=== PATIENT | female | born 1990 | race African-American/Black ===

== ENCOUNTER 2016-08-27 12:16 | Emergency (ER) | payer MEDICAID ==
[~2016-08-27] VITALS: Ht 167.6 cm; Wt 53.5 kg
[~2016-08-27 12:16] MED LIST: DOXYCYCLINE MO100 MG ORAL; DOXYCYCLINE MO100 MG PO; FLAGYL500 MG ORAL; MACRODANTIN100 MG ORAL; METROGEL 1% KI1 EACH TP; METROGEL-VAGINA70 G1 VG; MOTRIN600 MG ORAL; MYCOLOG CREA1 APPLIC TOPIC; NKM
[2016-08-27 12:54] VITALS: BP 125/78
[2016-08-27] MEDS ORDERED: HYDROXYZINE HCL25 M1 PO ×2 (12:59→14:07)
[2016-08-27] MEDS ORDERED: QUETIAPINE FUMA25 MG ORAL (12:59)
--- NOTE | 2016-08-27 13:29 | Emergency Room Report ---
History of Present Illness General Chief Complaint: General Complaint Source: Patient Present Illness HPI 26 y/o female c/o multiple complaints. States that she has rash all over her body that has started 3 days ago. States its itchy and dark colored spots that started on her abdomen and is now extending on her arms and face with lip itching but w/o SOB, throat swelling, or angioedema. States that she also has vaginal discharge that is malodorous and causing vaginal itching. States she is sexually active and is concerned she may have herpes due to perianal mass that formed 4 days ago. States it got worse with wiping and with sitting, assoc with pruritis. No relieving factors and denies any fever, drainage Allergies: Coded Allergies: ACETAMINOPHEN (Verified Allergy, Intermediate, Hives, 09/01/12) HYDROCODONE BIT (Verified Allergy, Intermediate, Hives, 09/01/12) Patient History Past Medical History: see triage record Pertinent Family History: none Last Menstrual Period: 07/2016 Now: No Reviewed Nursing Documentation: PMH: Agreed, PSxH: Agreed Nursing Documentation-PMH Past Medical History: No History, Except For Hx Cardiac Problems: Yes - PE, Irregular HR History Of Psychiatric Problem: Yes - Depression Review of Systems All Other Systems: negative except mentioned in HPI Physical Exam Vital Signs Date Time Temp Pulse Resp B/P Pulse Ox O2 Delivery O2 Flow Rate FiO2 08/27/16 12:54 98.2 104 16 125/78 99 Room Air Sp02 EP Interpretation: reviewed, normal General Appearance: no apparent distress, alert, GCS 15, non-toxic Head: normocephalic, atraumatic Eyes: bilateral eye PERRL, bilateral eye normal inspection ENT: hearing grossly normal, normal pharynx, no angioedema, normal voice Neck: full range of motion, supple/symm/no masses Respiratory: chest non-tender, lungs clear, normal breath sounds, speaking full sentences Cardiovascular #1: regular rate, rhythm, no edema Gastrointestinal: normal bowel sounds, non tender, soft, non-distended, no guarding, no rebound Rectal: mass - perianal mass present with mild tenderness, erythema and fluctulence. , other - Female foster care therapist present Genitourinary: normal inspection, no CVA tenderness Musculoskeletal: back normal, gait/station normal, normal range of motion, non- tender Neurologic: alert, oriented x3, responsive, motor strength/tone normal, sensory intact, speech normal Psychiatric: judgement/insight normal, memory normal, mood/affect normal, no suicidal/homicidal ideation Skin: normal color, warm/dry, well hydrated, rash - scattered hyperpigmented wheeles and flairs present. Lymphatic: no adenopathy Procedures Incision and Drainage Incision and Drainage : Consent: Verbal Site: Perianal Blade Size: 11 I & D Procedure: betadine prep Wound Location: other - gluteal cleft Wound's Depth, Shape: superficial Wound Length (cm): 4 Irrigated w/ Saline (ccs): 250 Anesthesia: 1% Lidocaine, Lidocaine w/ Epi Patient Tolerated: Well Complications: None Medical Decision Making PA Attestation Dr. James my supervising physician with whom patient management has been discussed with. Diagnostic Impression: Primary Impression: Perianal abscess Additional Impressions: Vaginitis Qualified Codes: N76.0 - Acute vaginitis Hives of unknown origin ER Course Pt. presents to the ED c/o multiple complaints Ddx considered but are not limited to STI, BV, Perianal abscess, Candidiasis, Allergic Reaction, Cellulitis, Perianal cyst Vital signs: are WNL, pt. is afebrile H&PE are most consistent with Perianal abscess, Acute Vaginitis, Hives ORDERS: none required at this time, the diagnosis is clinical ED INTERVENTIONS: I&D abscess DISCHARGE: At this time pt. is stable for d/c to home. Will provide printed patient care instructions, and any necessary prescriptions. Care plan and follow up instructions have been discussed with the patient prior to discharge. Laboratory Tests Test 08/27/16 14:20 Urine HCG, Qualitative Negative Last Vital Signs Date Time Temp Pulse Resp B/P Pulse Ox O2 Delivery O2 Flow Rate FiO2 08/27/16 12:54 98.2 104 16 125/78 99 Room Air Status: improved Disposition: HOME, SELF-CARE Condition: Improved Scripts Hydroxyzine Hcl (HYDROXYZINE HCL) 25 Mg Tablet 25 MG PO TID for 10 Days, #30 TAB Prov: SABRY,TAMEEM P.A. 08/27/16 Methylprednisolone* (MEDROL*) 4 Mg Tablet 4 MG ORAL DAILY, #1 PACK 0 Refills Prov: SABRY,TAMEEM P.A. 08/27/16 Fluconazole (FLUCONAZOLE) 100 Mg Tablet 100 MG ORAL DAILY for 1 Day, #2 TAB 0 Refills Prov: MICHAELLE [email or web address].AGracie 08/27/16 Metronidazole* (METROGEL-VAGINAL*) 70 Gm Gel.w.appl 70 GM VG QHS, #1 TUBE Prov: MICHAELLE IBARRA.A. 08/27/16 Doxycycline Hyclate* (VIBRAMYCIN*) 100 Mg Capsule 100 MG ORAL EVERY 12 HOURS for 10 Days, #20 CAP 0 Refills Prov: MICHAELLE [email or web address].[email or web address] 08/27/16 Patient Instructions: Abscess, Bacterial Vaginosis, Hives MICHAELLE IBARRA Aug 27, 2016 13:29
[2016-08-27] MEDS ORDERED: Lidocaine 1% 10mg/ml/Epi 0.005mg/ml 30ml vial INJ ONE (13:30)
[2016-08-27] MEDS ORDERED: VIBRAMYCIN100 MG ORAL (14:03)
[2016-08-27] MEDS ORDERED: METROGEL-VAGINA70 G1 VG (14:04)
[2016-08-27] MEDS ORDERED: FLUCONAZOLE100 MG ORAL (14:04)
[2016-08-27] MEDS ORDERED: MEDROL4 MG ORAL (14:07)
[2016-08-27 15:20] VITALS: BP 128/74
== END 2016-08-27 15:23 | disposition home or self-care (01) ==
LOC: EMR 13:26
DX: K61.0 Anal abscess (principal); N76.0 Acute vaginitis; F32.9 Major depressive disorder, single episode, unspecified; Z88.6 Allergy status to analgesic agent
CPT/HCPCS: 10060; 81025

== ENCOUNTER 2016-09-01 14:28 | Emergency (ER) | payer MEDICAID ==
[~2016-09-01] VITALS: Ht 167.6 cm; Wt 53.5 kg
[~2016-09-01 14:28] MED LIST changes: +FLUCONAZOLE100 MG ORAL; +HYDROXYZINE HCL25 M1 PO; +MEDROL4 MG ORAL; +QUETIAPINE FUMA25 MG ORAL; +VIBRAMYCIN100 MG ORAL
[2016-09-01 14:48] VITALS: BP 118/78
--- NOTE | 2016-09-01 14:55 | Emergency Room Report ---
History of Present Illness General Chief Complaint: Wound Recheck/Suture Removal Source: Patient Present Illness HPI 26-year-old female presents emergency department for wound recheck of previously incised abscess in the gluteal cleft. Patient states she's been taking her antibiotics as directed and denies discharge or worsening of the symptoms at this time. Patient also states she was seen for a rash of the abdomen which has been improving. Patient denies nausea vomiting fevers chills increased erythema, increased tenderness about the incision. Denies abdominal pain, constipation, diarrhea, CP, Palpitations, LOC, AMS, dizziness, Changes in Vision, Sensation, paresthesias, or a sudden severe headache. Allergies: Coded Allergies: ACETAMINOPHEN (Verified Allergy, Intermediate, Hives, 09/01/12) HYDROCODONE BIT (Verified Allergy, Intermediate, Hives, 09/01/12) Patient History Past Medical History: see triage record Past Surgical History: none Pertinent Family History: none Last Menstrual Period: last month Now: No Immunizations: UTD Reviewed Nursing Documentation: PMH: Agreed, PSxH: Agreed Nursing Documentation-PMH Past Medical History: No History, Except For Hx Cardiac Problems: Yes - PE, Irregular HR Review of Systems All Other Systems: negative except mentioned in HPI Physical Exam Vital Signs Date Time Temp Pulse Resp B/P Pulse Ox O2 Delivery O2 Flow Rate FiO2 09/01/16 14:35 97.9 86 18 118/78 98 Room Air Sp02 EP Interpretation: reviewed, normal General Appearance: no apparent distress, alert, GCS 15, non-toxic Head: normocephalic, atraumatic Eyes: bilateral eye PERRL, bilateral eye normal inspection ENT: hearing grossly normal, normal pharynx, no angioedema, normal voice Neck: full range of motion, supple/symm/no masses Respiratory: chest non-tender, lungs clear, normal breath sounds, speaking full sentences Cardiovascular #1: regular rate, rhythm, no edema Gastrointestinal: normal bowel sounds, non tender, soft, no guarding, no rebound, other - resolving rash of the abdomen, no TTP Rectal: deferred Genitourinary: normal inspection, no CVA tenderness Musculoskeletal: back normal, gait/station normal, normal range of motion, non- tender, no calf tenderness Neurologic: alert, oriented x3, responsive, motor strength/tone normal, sensory intact, speech normal Psychiatric: judgement/insight normal, memory normal, mood/affect normal, no suicidal/homicidal ideation Skin: normal color, warm/dry, well hydrated, wd healing/no infection noted - right side of the gluteal cleft/ perirectal area., rash - resolving urticarial type rash of the abdomen and forearms, no induration, old excoriations noted, hyperpigmented plaques noted. Lymphatic: no adenopathy Medical Decision Making PA Attestation Dr. Erickson is my supervising Physician whom patient management has been discussed with. Diagnostic Impression: Primary Impression: Encounter for wound re-check ER Course 26-year-old female presents emergency department for wound recheck of previously incised abscess in the gluteal cleft. Patient states she's been taking her antibiotics as directed and denies discharge or worsening of the symptoms at this time. Patient also states she was seen for a rash which has been improving. Patient denies nausea vomiting fevers chills increased erythema , increased tenderness about the incision. Ddx considered but are not limited to cellulitis, abscess, cystic acne, necrotizing fasciitis, healing wound, resolving urticarial rash. Vital signs: are WNL, pt. is afebrile H&PE are most consistent with healing previously incised abscess. ORDERS: none required at this time, the diagnosis is clinical ED INTERVENTIONS: -none required at this time wound is healing well no signs of infection at this time. d/w pt. to continue taking po abx and to look for signs of infection . DISCHARGE: At this time pt. is stable for d/c to home. Will provide printed patient care instructions, and any necessary prescriptions. Care plan and follow up instructions have been discussed with the patient prior to discharge. Last Vital Signs Date Time Temp Pulse Resp B/P Pulse Ox O2 Delivery O2 Flow Rate FiO2 09/01/16 14:48 18 118/78 98 Room Air 09/01/16 14:35 97.9 86 Disposition: HOME, SELF-CARE Condition: Stable Referrals: NON PHYSICIAN (PCP) Departure Forms: Return to School Return to School On: Sep 02, 2016 School Release Restrictions: None Other School Release Restrictions: PT. was initially seen in ED on 08/27/16 as well. please excuse for 08/26/16. Return to Full Activity: Sep 02, 2016 Patient Instructions: Wound Check Additional Instructions: Take previously medications as directed. Follow up with PCP in 3-5 days Return sooner to ED if new symptoms occur, or current symptoms become worse. - Please note that this Emergency Department Report was dictated using [employer]ret[employer] sales consultant technology software, occasionally this can lead to erroneous entry secondary to interpretation by the dictation equipment. Amy Webb Sep 01, 2016 14:55
[2016-09-01 15:00] VITALS: BP 118/78
== END 2016-09-01 15:24 | disposition home or self-care (01) ==
LOC: EMR 14:49
DX: L02.31 Cutaneous abscess of buttock (principal); Z48.01 Encounter for change or removal of surgical wound dressing; Z86.711 Personal history of pulmonary embolism; Z88.6 Allergy status to analgesic agent
CPT/HCPCS: 99281

== ENCOUNTER 2017-03-20 01:03 | Emergency (ER) | payer MEDICAID ==
[~2017-03-20] VITALS: Ht 167.6 cm; Wt 53.1 kg
--- NOTE | 2017-03-20 01:25 | Emergency Room Report ---
History of Present Illness General Chief Complaint: Vaginal Source: Patient Present Illness HPI 26-year-old female no significant past medical history presenting with 2 weeks of vaginal itching and discharge. Patient states vaginal itching, white cottage cheese discharge, every day for 2 weeks. Patient states that she has been sexually active with only using protection intermittently. Patient states that she wants to be treated for STDs as well. Denies any fever chills vaginal bleeding abdominal pain. Has dysuria, no hematuria no recent abx use Allergies: Coded Allergies: ACETAMINOPHEN (Verified Allergy, Intermediate, Hives, 09/01/12) HYDROCODONE BIT (Verified Allergy, Intermediate, Hives, 09/01/12) Patient History Past Medical History: see triage record Past Surgical History: none Pertinent Family History: none Last Menstrual Period: last month Reviewed Nursing Documentation: PMH: Agreed, PSxH: Agreed Nursing Documentation-PMH Hx Cardiac Problems: Yes - PE, Irregular HR Review of Systems All Other Systems: negative except mentioned in HPI Physical Exam Vital Signs Date Time Temp Pulse Resp B/P (MAP) Pulse Ox O2 Delivery O2 Flow Rate FiO2 03/20/17 01:05 98.1 116 18 135/95 98 Room Air Sp02 EP Interpretation: reviewed, normal General Appearance: normal inspection, well appearing, no apparent distress, alert, GCS 15, non-toxic Head: normocephalic, atraumatic Eyes: bilateral eye normal inspection, bilateral eye PERRL, bilateral eye EOMI ENT: normal ENT inspection, normal pharynx, normal voice, moist mucus membranes Neck: normal inspection, full range of motion, supple Respiratory: normal inspection, lungs clear, normal breath sounds, no respiratory distress, no retraction, no wheezing, speaking full sentences, chest symmetrical Cardiovascular #1: normal inspection, regular rate, rhythm, no edema, normal capillary refill Cardiovascular #2: 2+ radial (R), 2+ radial (L) Gastrointestinal: normal inspection, non tender, soft, non-distended, no guarding Genitourinary: other - cottage cheese vaginal DC, erythematous labia majora Musculoskeletal: normal inspection, back normal, normal range of motion, non- tender Neurologic: normal inspection, alert, oriented x3, responsive, motor strength/ tone normal, sensory intact, normal gait, speech normal Psychiatric: normal inspection, judgement/insight normal, memory normal Skin: normal inspection, normal color, no rash, warm/dry, well hydrated, normal turgor Medical Decision Making Diagnostic Impression: Primary Impression: Yeast infection Additional Impression: Concern about STD in female without diagnosis ER Course 26-year-old female with vaginal itching and discharge for 2 weeks DDX: Yeast Infection/UTI/STDs Plan: UA urine Empirically treated for STDs Fluconazole ER course: Patient has remained stable during ED stay. Received ceftriaxone and azithromycin fluconazole given Last HR 80 Disposition: Patient is to be discharged to home. Patient is instructed to follow up with their primary care doctor within 5 days. Strict return precautions discussed with patient such as fever, chills, worsening/severe pain, nausea, vomiting, which may indicate severe illness. Patient verbalizes understanding and agrees with plan. Please note that this Emergency Department Report was dictated using [employer] logger technology software, occasionally this can lead to erroneous entry secondary to interpretation by the dictation equipment Laboratory Tests Test 03/20/17 01:15 Urine Color Pale yellow Urine Appearance Clear Urine pH 6.5 (4.5-8.0) Urine Specific [place] 1.010 (1.005-1.035) Urine Protein Negative (NEGATIVE) Urine Glucose (UA) Negative (NEGATIVE) Urine Ketones Negative (NEGATIVE) Urine Occult Blood Negative (NEGATIVE) Urine Nitrite Negative (NEGATIVE) Urine Bilirubin Negative (NEGATIVE) Urine Urobilinogen Normal MG/DL (0.0-1.0) Urine Leukocyte Esterase 2+ (NEGATIVE) H Urine RBC 0-2 /HPF (0 - 2) Urine WBC 5-10 /HPF (0 - 2) H Urine Squamous Epithelial Cells Many /LPF (NONE/OCC) H Urine Bacteria Few /HPF (NONE) Urine HCG, Qualitative Negative Chlamydia trachomatis RNA Pending Neisseria gonorrhoeae RNA Pending Last Vital Signs Date Time Temp Pulse Resp B/P (MAP) Pulse Ox O2 Delivery O2 Flow Rate FiO2 03/20/17 01:05 98.1 116 18 135/95 98 Room Air Disposition: HOME, SELF-CARE Condition: Improved Yuli Shea M.D. Mar 20, 2017 01:25
[2017-03-20] MEDS ORDERED: Lidocaine 1% MPF 10mg/ml 5ml ONE (01:28)
[2017-03-20] MEDS ORDERED: Lidocaine 1% MPF 10mg/ml 5ml IM ONE (01:30)
[2017-03-20] MEDS ORDERED: Azithromycin 250mg tab ORAL ONE (01:30)
[2017-03-20 01:38] LABS: APPEARANCE,URINE CLEAR; KETONES,URINE NEGATIVE (NEGATIVE); LEUKOCYTE ESTERASE ,URINE 2+ (NEGATIVE); NITRITE,URINE NEGATIVE (NEGATIVE); PH,URINE 6.5 (4.5-8.0); PROTEIN,URINE NEGATIVE (NEGATIVE); UROBILINOGEN,URINE NORMAL MG/DL (0.0-1.0)
[2017-03-20 01:39] VITALS: BP 135/95
[2017-03-20 01:42] LABS: RBC,URINE 0-2 /HPF (0 - 2)
[2017-03-20 01:43] LABS: BACTERIA,URINE FEW /HPF; SQUAMOUS EPITHELIAL CELL,UR MANY /LPF (NONE/OCC)
[2017-03-20] MEDS ORDERED: Fluconazole 100mg tab ORAL ONE (02:00)
[2017-03-20 02:13] VITALS: BP 135/95
== END 2017-03-20 02:18 | disposition home or self-care (01) ==
LOC: EMR 01:30
DX: B37.3 Candidiasis of vulva and vagina (principal); Z88.6 Allergy status to analgesic agent
CPT/HCPCS: 81003; 81025; 87491; 87590; 96372; 99283; J0696; Q0144

== ENCOUNTER 2018-02-17 13:19 | Emergency (ER) | payer MEDICAID ==
[~2018-02-17] VITALS: Ht 157.5 cm; Wt 59.0 kg
[2018-02-17 14:24] LABS: APPEARANCE,URINE CLEAR; BILIRUBIN, URINE NEGATIVE (NEGATIVE); COLOR,URINE PALE YELLOW; GLUCOSE, URINE (UA) NEGATIVE (NEGATIVE); KETONES,URINE NEGATIVE (NEGATIVE); LEUKOCYTE ESTERASE ,URINE NEGATIVE (NEGATIVE); NITRITE,URINE NEGATIVE (NEGATIVE); PH,URINE 6 (4.5-8.0); PROTEIN,URINE NEGATIVE (NEGATIVE); UROBILINOGEN,URINE 4 MG/DL (0.0-1.0)
[2018-02-17] MEDS ORDERED: Lidocaine 1% MPF 10mg/ml 5ml INJ ONE (15:00)
[2018-02-17] MEDS ORDERED: Azithromycin 250mg tab ORAL ONE (15:00)
--- NOTE | 2018-02-17 15:02 | Emergency Room Report ---
History of Present Illness General Chief Complaint: Vaginal Source: Patient Present Illness HPI 27 YO female presents to the ED c/o malodorus vaginal d/c x 3 days. pt. reports promiscuity with multiple partners and without protection. denies fevers, chills , abdominal pain, joint pain or swollen tender lymph nodes. Denies skin lesions/ rashes. Denies , and denies taking -control. Allergies: Coded Allergies: ACETAMINOPHEN (Verified Allergy, Intermediate, Hives, 09/01/12) HYDROCODONE BIT (Verified Allergy, Intermediate, Hives, 09/01/12) Patient History Past Medical History: see triage record Past Surgical History: none Pertinent Family History: none Social History: Reports: alcohol use - daily ETOH Last Menstrual Period: 02/10/2018 Reviewed Nursing Documentation: PMH: Agreed; PSxH: Agreed Nursing Documentation-PMH Past Medical History: No History, Except For Hx Cardiac Problems: Yes - PE, Irregular HR History Of Psychiatric Problem: Yes - depression, mood disorder Review of Systems All Other Systems: negative except mentioned in HPI Physical Exam Vital Signs Date Time Temp Pulse Resp B/P (MAP) Pulse Ox O2 Delivery O2 Flow Rate FiO2 02/17/18 13:35 98.2 108 18 96 Room Air 98.2 Sp02 EP Interpretation: reviewed, normal General Appearance: no apparent distress, alert, GCS 15, non-toxic Head: normocephalic, atraumatic Eyes: bilateral eye normal inspection, bilateral eye PERRL ENT: hearing grossly normal, normal voice Neck: full range of motion Respiratory: lungs clear, normal breath sounds, speaking full sentences Cardiovascular #1: regular rate, rhythm Gastrointestinal: normal bowel sounds, non tender, soft Rectal: deferred Genitourinary: normal inspection, no CVA tenderness, adnexa normal, ext genitalia/vag normal, other - thin whity malodorus vaginal d/c noted Musculoskeletal: back normal, gait/station normal, normal range of motion, non- tender Neurologic: alert, oriented x3, responsive, motor strength/tone normal, sensory intact, speech normal, grossly normal Psychiatric: judgement/insight normal Skin: normal color, no rash, warm/dry, well hydrated Lymphatic: no adenopathy Medical Decision Making PA Attestation Dr. Bobo is my supervising Physician whom patient management has been discussed with. Diagnostic Impression: Primary Impression: Bacterial vaginosis Additional Impression: Vaginal discharge ER Course 27 YO female presents to the ED c/o malodorus vaginal d/c x 3 days. pt. reports promiscuity with multiple partners and without protection. denies fevers, chills , abdominal pain, joint pain or swollen tender lymph nodes. Denies skin lesions/ rashes. Denies , and denies taking -control. Ddx considered but are not limited to UTi , Pyelo, STI, Stone, Cystitis, vaginal laceration, vaginitis. Vital signs: are WNL, pt. is afebrile H& PE are most consistent with: Vaginitis ORDERS: - UA labs are attached : unremarkable - [place] : Clue cells, no yeast, or trich, bacteria noted ED INTERVENTIONS: -Rocephin IM -Azithromycin 1g PO -D/w pt. that due to daily ETOH intake she is not a good candidate for PO Flagyl will rx with metrogel. DISCHARGE: At this time pt. is stable for d/c to home. Will provide printed patient care instructions, and any necessary prescriptions. Care plan and follow up instructions have been discussed with the patient prior to discharge. discussed with the patient prior to discharge. Labs Test 02/17/18 13:50 Urine Color Pale yellow Urine Appearance Clear Urine pH 6 (4.5-8.0) Urine Specific [place] 1.015 (1.005-1.035) Urine Protein Negative (NEGATIVE) Urine Glucose (UA) Negative (NEGATIVE) Urine Ketones Negative (NEGATIVE) Urine Blood Negative (NEGATIVE) Urine Nitrite Negative (NEGATIVE) Urine Bilirubin Negative (NEGATIVE) Urine Urobilinogen 4 MG/DL (0.0-1.0) Urine Leukocyte Esterase Negative (NEGATIVE) Urine HCG, Qualitative Negative (NEGATIVE) Last Vital Signs Date Time Temp Pulse Resp B/P (MAP) Pulse Ox O2 Delivery O2 Flow Rate FiO2 02/17/18 14:05 98.2 18 96 Room Air 98.2 02/17/18 13:35 108 Disposition: HOME, SELF-CARE Condition: Stable Scripts Metronidazole* (METROGEL-VAGINAL*) 70 Gm Gel.w.appl 1 APPL VAGIN EVERY 12 HOURS for 5 Days, #70 GM Prov: Amy Webb 02/17/18 Patient Instructions: Bacterial Vaginosis Additional Instructions: Take medications as directed. MAKE SURE YOUR PARTNERS GET TREATED WITH ANTIBIOTICS to prevent becoming re- infected No intercourse for 7-10 days, as you are infectious and can spread the bacterial infection. Follow up with PCP in 3-5 days Return sooner to ED if new symptoms occur, or current symptoms become Amy Webb Feb 17, 2018 15:02
[2018-02-17 15:03] VITALS: BP 132/62
[2018-02-17] MEDS ORDERED: METROGEL-VAGINA70 G1 VAGIN (15:08)
== END 2018-02-17 15:00 | disposition home or self-care (01) ==
LOC: EMR 14:12
DX: N76.0 Acute vaginitis (principal); Z88.5 Allergy status to narcotic agent; Z88.6 Allergy status to analgesic agent
CPT/HCPCS: 81003; 81025; 87210; 96372; 99283; J0696; Q0144; 96374

== ENCOUNTER 2018-05-06 13:19 | Emergency (ER) | payer MEDICAID ==
[~2018-05-06] VITALS: Ht 167.6 cm; Wt 54.4 kg
[~2018-05-06 13:19] MED LIST changes: +METROGEL-VAGINA70 G1 VAGIN
[2018-05-06] MEDS ORDERED: BACITRACIN-POL3.5 GM OP (14:05)
--- NOTE | 2018-05-06 14:09 | Emergency Room Report ---
History of Present Illness General Chief Complaint: Skin Rash/Abscess Source: Patient Present Illness HPI Patient just with several complaints Initially complaining that her ointment for her right eye had been left open and she ran out patient was given ointment for her eye irritation several days ago at another hospital patient also complaining of an area on the right buttock area where she felt a small raised region Otherwise denies any chest pain or shortness of breath denies any vomiting or diarrhea denies any fevers or chills patient also felt that there was some different discoloration to her lips Allergies: Coded Allergies: ACETAMINOPHEN (Verified Allergy, Intermediate, Hives, 09/01/12) HYDROCODONE BIT (Verified Allergy, Intermediate, Hives, 09/01/12) Patient History Past Medical History: see triage record Pertinent Family History: none Last Menstrual Period: 04/28/18 Now: No Reviewed Nursing Documentation: PMH: Agreed; PSxH: Agreed Nursing Documentation-PMH Past Medical History: No History, Except For Hx Cardiac Problems: Yes - PE, Irregular HR Review of Systems All Other Systems: negative except mentioned in HPI Physical Exam Vital Signs Date Time Temp Pulse Resp B/P (MAP) Pulse Ox O2 Delivery O2 Flow Rate FiO2 05/06/18 13:46 98.2 76 18 115/80 97 Room Air Sp02 EP Interpretation: reviewed, normal General Appearance: well appearing, no apparent distress Head: normocephalic, atraumatic Eyes: right eye other - Right conjunctiva had some mild Erythematous hue, no obvious foreign body; bilateral eye PERRL, bilateral eye EOMI ENT: other - Mild dryness to both upper and lower lips, no evidence of blister formation or other STD Neck: supple Respiratory: lungs clear, normal breath sounds Cardiovascular #1: regular rate, rhythm Gastrointestinal: non tender, soft Musculoskeletal: normal inspection Neurologic: alert, oriented x3, responsive Skin: other - Small area on the right buttock area appears to be consistent with likely insect bite nonfluctuant no dermatomal fashion, Lymphatic: no adenopathy Medical Decision Making Diagnostic Impression: Primary Impression: Rash and other nonspecific skin eruption Additional Impression: conjunctivitis ER Course Patient presents with several different complaints findings consistent with previous conjunctivitis and the skin dermatitis appears to be likely insect bite related patient does not appear otherwise septic or toxic and is stable for close outpatient follow-up Last Vital Signs Date Time Temp Pulse Resp B/P (MAP) Pulse Ox O2 Delivery O2 Flow Rate FiO2 05/06/18 13:46 98.2 76 18 115/80 97 Room Air Status: unchanged Disposition: HOME, SELF-CARE Condition: Stable Scripts Bacitracin/Polymyxin B Sulfate (BACITRACIN-POLYMYXIN EYE OINT) 3.5 Gm Oint...g. 1 INCH OP BID for 10 Days, GM Prov: Eloy Clifford DO 05/06/18 Referrals: [facility] - Peds ER - Patient Instructions: Bacterial Conjunctivitis, [id number], Insect Bite, Easy -to-Read Additional Instructions: Patient is provided with the discharge instructions notified to follow up with primary doctor in the next 2-3 days otherwise return to the er with any worsening symptoms. Please note that this report is being documented using [employer] technology. This can lead to erroneous entry secondary to incorrect interpretation by the dictating instrument. Eloy Clifford DO May 06, 2018 14:09
[2018-05-06 16:24] VITALS: BP 115/80
[2018-05-06 16:26] VITALS: BP 115/80
== END 2018-05-06 14:30 | disposition home or self-care (01) ==
LOC: EMR 14:00
DX: R21 Rash and other nonspecific skin eruption (principal); H10.9 Unspecified conjunctivitis; Z88.6 Allergy status to analgesic agent
CPT/HCPCS: 99282

== ENCOUNTER 2018-06-29 02:14 | Emergency (ER) | payer MEDICAID ==
[~2018-06-29] VITALS: Ht 160 cm; Wt 65.8 kg
[~2018-06-29 02:14] MED LIST changes: +BACITRACIN-POL3.5 GM OP
--- NOTE | 2018-06-29 02:29 | NUR ---
ED Nurse Note: Pt is not in waiting room.
[2018-06-29 02:47] VITALS: BP 116/72
--- NOTE | 2018-06-29 02:47 | NUR ---
ED Nurse Note: Pt arrived ED from home. C/o " something in her both eye today" . Pt is A/O X4, ambulated with steady gait. Vital signs stable at this time. waitng for orders.
--- NOTE | 2018-06-29 04:15 | Emergency Room Report ---
History of Present Illness General Chief Complaint: General Complaint Source: Patient Present Illness HPI Patient presents with complaints of eye irritation Reports redness over the past several days some discharge Denies any pain Denies any visual changes denies any headache denies any neck pain or photophobia Patient had similar presentation recently Otherwise denies any trauma Allergies: Coded Allergies: ACETAMINOPHEN (Verified Allergy, Intermediate, Hives, 09/01/12) HYDROCODONE BIT (Verified Allergy, Intermediate, Hives, 09/01/12) Patient History Past Medical History: see triage record Pertinent Family History: none Reviewed Nursing Documentation: PMH: Agreed; PSxH: Agreed Nursing Documentation-PMH Past Medical History: No Stated History Hx Cardiac Problems: Yes - PE, Irregular HR Review of Systems All Other Systems: negative except mentioned in HPI Physical Exam Vital Signs Date Time Temp Pulse Resp B/P (MAP) Pulse Ox O2 Delivery O2 Flow Rate FiO2 06/29/18 02:41 98.1 88 20 114/74 100 Room Air Sp02 EP Interpretation: reviewed, normal General Appearance: well appearing, no apparent distress Head: normocephalic, atraumatic Eyes: bilateral eye PERRL, bilateral eye other - Bilateral conjunctivitis ENT: normal pharynx Neck: supple Respiratory: lungs clear Musculoskeletal: normal inspection Neurologic: alert, oriented x3, responsive Skin: no rash Lymphatic: no adenopathy Medical Decision Making Diagnostic Impression: Primary Impression: Conjunctivitis ER Course Patient's presentation and exam is consistent with conjunctivitis there is likely mostly viral pathology however the patient is fairly Persistent regarding obtaining prescription Given similar discharge patient was provided with this prescription And requires close outpatient follow-up Last Vital Signs Date Time Temp Pulse Resp B/P (MAP) Pulse Ox O2 Delivery O2 Flow Rate FiO2 06/29/18 03:25 98.1 88 20 114/74 100 Room Air Status: unchanged Disposition: HOME, SELF-CARE Condition: Stable Referrals: NOT CHOSEN IPA/MD,REFERRING (PCP) Additional Instructions: Patient is provided with the discharge instructions notified to follow up with primary doctor in the next 2-3 days otherwise return to the er with any worsening symptoms. Please note that this report is being documented using [employer] technology. This can lead to erroneous entry secondary to incorrect interpretation by the dictating instrument. Eloy Clifford DO Jun 29, 2018 04:15
[2018-06-29] MEDS ORDERED: GENTAMICIN SUL3.5 GM OP (04:16)
[2018-06-29 04:22] VITALS: BP 114/74
--- NOTE | 2018-06-29 04:22 | NUR ---
ED Nurse Note: Pt has seen by Dr. Clifford. orders carried out. Pt is ready for discharge. D/c instruction given to Pt and verbalized understanding. ID band removed. Pt d/c from ED with steady gait.
== END 2018-06-29 04:22 | disposition home or self-care (01) ==
LOC: EMR 02:26
DX: H10.9 Unspecified conjunctivitis (principal); Z88.6 Allergy status to analgesic agent
CPT/HCPCS: 99282

== ENCOUNTER 2018-06-30 02:15 | Emergency (ER) | payer MEDICAID ==
[~2018-06-30] VITALS: Ht 167.6 cm; Wt 57.6 kg
[~2018-06-30 02:15] MED LIST changes: +GENTAMICIN SUL3.5 GM OP
--- NOTE | 2018-06-30 02:19 | NUR ---
ED Nurse Note: PT was called for triag, pt not found in waiting room.
--- NOTE | 2018-06-30 02:23 | NUR ---
ED Nurse Note: PT was called for triag, pt not found in waiting room.
--- NOTE | 2018-06-30 02:31 | NUR ---
ED Nurse Note: PT was called for triag, pt not found in waiting room.
--- NOTE | 2018-06-30 02:36 | NUR ---
ED Nurse Note: PT was called for triag, pt not found in waiting room.
--- NOTE | 2018-06-30 02:50 | NUR ---
ED Nurse Note: recieved pt on gurney, awake, alert and oriented x 4, pt ambulated to bed with pants down, pt refuses to answer nurse questions stating she wants to speak with the md, tp was here for same complaint yesterday and left ama by security, will attempt to assess when md arives to room, tp also refuses to gown or give urine sample at this time.
[2018-06-30 03:00] VITALS: BP 119/73
--- NOTE | 2018-06-30 03:05 | NUR ---
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
--- NOTE | 2018-06-30 03:08 | Emergency Room Report ---
History of Present Illness General Chief Complaint: Female Urogenital Problems Source: Patient Present Illness HPI Patient is a 28-year-old female presented after increased vaginal bleeding several days ago. Patient denies any current vaginal bleeding. History is markedly limited by patient's poor cooperation. Allergies: Coded Allergies: ACETAMINOPHEN (Verified Allergy, Intermediate, Hives, 09/01/12) HYDROCODONE BIT (Verified Allergy, Intermediate, Hives, 09/01/12) Patient History Past Medical History: see triage record Last Menstrual Period: pt states she is on it right now. Now: No Reviewed Nursing Documentation: PMH: Agreed; PSxH: Agreed Nursing Documentation-PMH Hx Cardiac Problems: Yes - PE, Irregular HR Review of Systems All Other Systems: limited - Poor historian Physical Exam Vital Signs Date Time Temp Pulse Resp B/P (MAP) Pulse Ox O2 Delivery O2 Flow Rate FiO2 06/30/18 02:39 97.9 77 14 119/73 99 Room Air General Appearance: normal inspection, alert, GCS 15, non-toxic Head: normocephalic ENT: hearing grossly normal Neck: normal inspection, full range of motion Respiratory: normal inspection Gastrointestinal: normal inspection Musculoskeletal: normal inspection Neurologic: normal inspection, alert, responsive Psychiatric: other - belligerent Medical Decision Making Diagnostic Impression: Primary Impression: Vaginal bleeding ER Course Patient is a 28-year-old female presented for vaginal bleeding. Differential diagnosis include was not limited to ectopic , menorrhagia, coagulopathy among others. Patient was noted to be markedly belligerent and abusive. She stated that she did not want to be seen by someone of my color. She would seek a "white doctor" somewhere else. Appears to be hemodynamically stable and in no respiratory distress.Patient was advised to return if she changed her mind. Last Vital Signs Date Time Temp Pulse Resp B/P (MAP) Pulse Ox O2 Delivery O2 Flow Rate FiO2 06/30/18 02:39 97.9 77 14 119/73 99 Room Air Status: unchanged Disposition: ELOPED Condition: Unknown Referrals: NOT CHOSEN IPA/,REFERRING (PCP) Carlos A Erickson MD Jun 30, 2018 03:08
[2018-06-30 03:15] VITALS: BP 119/73
[2018-07-10] MEDS ORDERED: NKM (23:16)
[2018-07-11] MEDS ORDERED: BENADRYL25 M3 PO (00:11)
== END 2018-06-30 03:10 | disposition left against medical advice (07) ==
LOC: EMR 03:06
DX: N93.9 Abnormal uterine and vaginal bleeding, unspecified (principal); Z88.6 Allergy status to analgesic agent
CPT/HCPCS: 99282

== ENCOUNTER 2018-07-13 00:08 | Emergency (ER) | payer MEDICAID ==
[~2018-07-13] VITALS: Ht 167.6 cm; Wt 53.5 kg
[~2018-07-13 00:08] MED LIST changes: +BENADRYL25 M3 PO
--- NOTE | 2018-07-13 00:20 | NUR ---
ED Nurse Note: pt walked in c/o skin irritation, pt stated she have contact with irritant and might have acquired ringworm but unbale to tell which part of the body
[2018-07-13 00:24] VITALS: BP 99/65
--- NOTE | 2018-07-13 00:29 | Emergency Room Report ---
History of Present Illness General Chief Complaint: Skin Rash/Abscess Source: Patient, Medical Record Present Illness HPI This is a 28-year-old female with no past medical history. She presents with chief complaint of skin irritation to her feet. Onset for last 2 weeks. She was here couple days ago and said that she lost her prescription. Denies any nausea vomiting. Said that she was exposed to some irritation. Denies any other complaint. Pain is itchy. Localized to the toes area. Denies any alcohol or Drugs. Allergies: Coded Allergies: ACETAMINOPHEN (Verified Allergy, Intermediate, Hives, 09/01/12) HYDROCODONE BIT (Verified Allergy, Intermediate, Hives, 09/01/12) Patient History Past Medical History: see triage record, old chart reviewed Past Surgical History: none Pertinent Family History: none Social History: Denies: smoking Last Menstrual Period: jun 28 Now: No Immunizations: other Reviewed Nursing Documentation: PMH: Agreed; PSxH: Agreed Nursing Documentation-PMH Hx Cardiac Problems: Yes - PE, Irregular HR Review of Systems Eye: Denies: eye pain, blurred vision ENT: Denies: ear pain, nose congestion, throat swelling Respiratory: Denies: cough, shortness of breath Cardiovascular: Denies: chest pain, palpitations Gastrointestinal: Denies: abdominal pain, diarrhea, nausea, vomiting Musculoskeletal: Denies: back pain, joint pain Skin: Reports: rash Neurological: Denies: headache, numbness Endocrine: Denies: increased thirst, increased urine Hematologic/Lymphatic: Denies: easy bruising All Other Systems: negative except mentioned in HPI Physical Exam Vital Signs Date Time Temp Pulse Resp B/P (MAP) Pulse Ox O2 Delivery O2 Flow Rate FiO2 07/13/18 00:12 97.9 94 16 99/65 97 Room Air vitals normal Sp02 EP Interpretation: reviewed, normal General Appearance: well appearing, no apparent distress, alert Head: normocephalic, atraumatic Eyes: bilateral eye PERRL, bilateral eye EOMI ENT: hearing grossly normal, normal pharynx Neck: full range of motion, supple, no meningismus Respiratory: chest non-tender, lungs clear, normal breath sounds Cardiovascular #1: regular rate, rhythm, no murmur Gastrointestinal: normal bowel sounds, non tender, no mass, no organomegaly, no bruit, non-distended Musculoskeletal: back normal, gait/station normal, normal range of motion, other - Patient has some skin breakdown excoriation to the volar aspect of her toes and feet. This is secondary to moisture. Neurologic: alert, oriented x3 Psychiatric: mood/affect normal Skin: warm/dry Medical Decision Making Diagnostic Impression: Primary Impression: Skin abrasion ER Course Patient with skin irritation and breakdown from poor hygiene and moisture. No evidence of any infection. I was given a right for Bactroban but patient left before getting prescription. Last Vital Signs Date Time Temp Pulse Resp B/P (MAP) Pulse Ox O2 Delivery O2 Flow Rate FiO2 07/13/18 00:12 97.9 94 16 99/65 97 Room Air Status: unchanged Disposition: HOME, SELF-CARE Condition: Stable Esteban Valdez MD Jul 13, 2018 00:29
[2018-07-13 00:31] VITALS: BP 99/65
--- NOTE | 2018-07-13 00:32 | NUR ---
ED Nurse Note: Pt is DC per ERMD orders. pt is alert and oriented times 4 and understands all DC notes and instructions. pt is instructed to follow up with main provider as soon as possible. pt is instructed to return to ER if any variance in condition. pt left with all belongings. pt vital signs, condition and status is reported to ERMD prior to DC. pt is stable for DC. pt vital signs is stable. pt is able to ambulate. pt ID band removed. pt has left without DC notes.
== END 2018-07-13 00:30 | disposition home or self-care (01) ==
LOC: EMR 00:23
DX: S90.416A Abrasion, unspecified lesser toe(s), initial encounter (principal); X58.XXXA Exposure to other specified factors, initial encounter; Y92.89 Other specified places as the place of occurrence of the external cause; Z88.5 Allergy status to narcotic agent; Z88.6 Allergy status to analgesic agent; F17.200 Nicotine dependence, unspecified, uncomplicated; Z86.711 Personal history of pulmonary embolism
CPT/HCPCS: 99282

== ENCOUNTER 2018-07-20 16:23 | Emergency (ER) | payer MEDICAID ==
[~2018-07-20] VITALS: Ht 165.1 cm; Wt 56.7 kg
--- NOTE | 2018-07-20 17:21 | Emergency Room Report ---
History of Present Illness General Chief Complaint: Medication Refill Source: Patient Present Illness HPI 28-year-old female presents to the emergency department requesting medication refill for medications that have been previously prescribed for her dermatitis on the left side of her forehead. Patient reports return of her symptoms she denies changes in characteristics. Patient she does not recall what the name of the medication was. Pt. denies fevers, chills or swollen tender lymph nodes. Denies lesions/rashes elsewhere on the body. Denies new medications or body washes or creams. Denies swelling of the lips, tongue , throat or airway. Denies wheezing, or shortness of breath. Denies recent travel, recent illness or ill contacts. denies blisters, oral lesions, or sloughing of the skin Allergies: Coded Allergies: ACETAMINOPHEN (Verified Allergy, Intermediate, Hives, 09/01/12) HYDROCODONE BIT (Verified Allergy, Intermediate, Hives, 09/01/12) Patient History Past Medical History: see triage record Past Surgical History: none Pertinent Family History: none Now: No Reviewed Nursing Documentation: PMH: Agreed; PSxH: Agreed Nursing Documentation-PMH Hx Cardiac Problems: Yes - PE, Irregular HR Review of Systems All Other Systems: negative except mentioned in HPI Physical Exam Vital Signs Date Time Temp Pulse Resp B/P (MAP) Pulse Ox O2 Delivery O2 Flow Rate FiO2 07/20/18 17:09 98.8 100 18 97 Room Air Sp02 EP Interpretation: reviewed, normal General Appearance: no apparent distress, alert, GCS 15, non-toxic Head: normocephalic, atraumatic, other - hyperpigmented dry patch on the left side of the forehead, no blisters, vessicles, erythema or warmth. Eyes: bilateral eye normal inspection, bilateral eye PERRL ENT: hearing grossly normal, normal voice Neck: full range of motion, other - no stridor Respiratory: lungs clear, normal breath sounds, no wheezing, speaking full sentences Cardiovascular #1: regular rate, rhythm Musculoskeletal: back normal, gait/station normal, normal range of motion, non- tender Neurologic: alert, oriented x3, responsive, motor strength/tone normal, sensory intact, speech normal, grossly normal Psychiatric: judgement/insight normal, other - Pt. is somewhat irritated and short with words/ answers. Skin: normal color, warm/dry, well hydrated, rash - hyperpigmented dry patch on the left side of the forehead, no blisters, vessicles, erythema or warmth. Medical Decision Making PA Attestation Dr. Hopper is my supervising Physician whom patient management has been discussed with. Diagnostic Impression: Primary Impression: Encounter for medication refill Additional Impression: Rash and other nonspecific skin eruption ER Course 28-year-old female presents to the emergency department requesting medication refill for medications that have been previously prescribed for her dermatitis on the left side of her forehead. Patient reports return of her symptoms she denies changes in characteristics. Patient she does not recall what the name of the medication was. Pt. denies fevers, chills or swollen tender lymph nodes. Denies lesions/rashes elsewhere on the body. Denies new medications or body washes or creams. Denies swelling of the lips, tongue , throat or airway. Denies wheezing, or shortness of breath. Denies recent travel, recent illness or ill contacts. denies blisters, oral lesions, or sloughing of the skin Ddx considered but are not limited to cellulitis, scabies, shingles, varicella, dermatitis, urticaria, eczema, tinea, viral exanthem, SJS Vital signs: are WNL, pt. is afebrile H&PE are most consistent with superficial dermatitis of the left side of the forehead, no evidence of acute impending airway compromise or anaphylaxis. ORDERS: none required at this time, the diagnosis is clinical ED INTERVENTIONS: None required at this time. DISCHARGE: At this time pt. is stable for d/c to home. Will provide printed patient care instructions, and any necessary prescriptions. Care plan and follow up instructions have been discussed with the patient prior to discharge. Last Vital Signs Date Time Temp Pulse Resp B/P (MAP) Pulse Ox O2 Delivery O2 Flow Rate FiO2 07/20/18 17:09 98.8 100 18 97 Room Air Disposition: HOME, SELF-CARE Condition: Stable Scripts Diphenhydramine Hcl (BENADRYL ALLERGY) 25 Mg Tablet 25 MG PO Q6HR, #20 TAB Prov: Amy Webb 07/20/18 Bacitracin/Polymyxin B Sulfate (BACITRACIN-POLYMYXIN OINTMENT) 28.35 Gm Oint...g. 1 APPLIC TP BID, #28.3 GM Prov: Amy Webb 07/20/18 Hydrocortisone (Hydrocortisone Cream 2.5%) Y Cream.appl 1 APPLIC TP BID, #28.3 GM Prov: Amy Webb 07/20/18 Patient Instructions: Medicine Refill at the Emergency Department Additional Instructions: Take medications as directed. Follow up with a Primary Care Provider in 3-5 days for DERMATOLOGY REFERRAL , even if your symptoms have resolved. --Please review list of primary care clinics, if you do not already have a primary care provider Return sooner to ED if new symptoms occur, or current symptoms become worse. - Please note that this Emergency Department Report was dictated using [employer] technology software, occasionally this can lead to erroneous entry secondary to interpretation by the dictation equipment. Amy Webb Jul 20, 2018 17:21
[2018-07-20] MEDS ORDERED: BACITRACIN-P28.35 GM TP (17:22)
[2018-07-20] MEDS ORDERED: HYDROCORTISONE30 G2 TP (17:22)
--- NOTE | 2018-07-20 17:45 | NUR ---
ED Nurse Note: Patient refused to remove head cover and scarf around the neck. Patient is here for rash. Reports no other symptoms. Patient does not scratch or no facial grimacing or guarding noted.
[2018-07-20] MEDS ORDERED: BENADRYL ALLERG25 M1 PO (17:47)
--- NOTE | 2018-07-20 18:00 | NUR ---
ED Nurse Note: Patient is being discharged from medical care. Patient awake, alert, oriented x 3. Regular unlabored breathing noted. D/C instruction and prescriptions given. Ambulated out with steady gait with all her belongings.
== END 2018-07-20 18:00 | disposition home or self-care (01) ==
LOC: EMR 17:50
DX: Z76.0 Encounter for issue of repeat prescription (principal); R21 Rash and other nonspecific skin eruption; Z88.6 Allergy status to analgesic agent; Z88.5 Allergy status to narcotic agent; Z86.711 Personal history of pulmonary embolism
CPT/HCPCS: 99282

== ENCOUNTER 2018-10-30 13:08 | Emergency (ER) | payer MEDICAID ==
[~2018-10-30] VITALS: Ht 167.6 cm; Wt 54.9 kg
[~2018-10-30 13:08] MED LIST changes: +BACITRACIN-P28.35 GM TP; +BENADRYL ALLERG25 M1 PO; +HYDROCORTISONE30 G2 TP
--- NOTE | 2018-10-30 13:14 | NUR ---
ED Nurse Note: patient not in the waiting room.
[2018-10-30 13:36] VITALS: BP 120/85
--- NOTE | 2018-10-30 13:42 | NUR ---
ED Nurse Note: pt walked in c.o constipation abd pain rectal irritation . pt states she has been having small bowl movements but in clumps. awaiting er md millard.
--- NOTE | 2018-10-30 14:15 | Emergency Room Report ---
History of Present Illness General Chief Complaint: Constipation Source: Patient Present Illness HPI 28 Yo Female presents to the ED c/o Constipation x 10 days. last BM was 3 days ago. Stool was described as very hard with 10/10 in severity rectal pain upon defecation. pt. reports hx of hemorrhoids. She states her symptoms were exacerbated due to poor diet while incarcerated. pt. denies N/V/F/C. She denies diarrhea, recent travel or ill contacts. She denies . She reports 2 days of vaginal itching on the external labia. She denies sores, vaginal d/c or swollen tender lymph nodes. pt. denies pelvic pain or abdominal pain. Pt. reports some dysuria. She denies low back pain. Pt. reports some scant brbpr on the tissue after wiping after her last BM. Allergies: Coded Allergies: ACETAMINOPHEN (Verified Allergy, Intermediate, Hives, 09/01/12) HYDROCODONE BIT (Verified Allergy, Intermediate, Hives, 09/01/12) Patient History Past Medical History: see triage record Past Surgical History: none Pertinent Family History: none Now: No Reviewed Nursing Documentation: PMH: Agreed; PSxH: Agreed Nursing Documentation-PMH Past Medical History: No History, Except For Review of Systems All Other Systems: negative except mentioned in HPI Physical Exam Vital Signs Date Time Temp Pulse Resp B/P (MAP) Pulse Ox O2 Delivery O2 Flow Rate FiO2 10/30/18 13:13 98.2 96 17 96 Room Air 10/30/18 13:36 120/85 Sp02 EP Interpretation: reviewed, normal General Appearance: no apparent distress, alert, GCS 15, non-toxic Head: normocephalic, atraumatic Eyes: bilateral eye normal inspection, bilateral eye PERRL ENT: hearing grossly normal, normal voice Neck: full range of motion Respiratory: lungs clear, normal breath sounds, speaking full sentences Cardiovascular #1: regular rate, rhythm Gastrointestinal: normal bowel sounds, non tender, soft, non-distended, no guarding Rectal: deferred - by pt. Genitourinary: normal inspection, no CVA tenderness Musculoskeletal: back normal, gait/station normal, normal range of motion, non- tender Neurologic: alert, oriented x3, responsive, motor strength/tone normal, sensory intact, speech normal, grossly normal Psychiatric: judgement/insight normal Skin: normal color, no rash, warm/dry, well hydrated Medical Decision Making PA Attestation Dr. hall is my supervising Physician whom patient management has been discussed with. Diagnostic Impression: Primary Impression: Constipation Qualified Codes: K59.00 - Constipation, unspecified Additional Impressions: Bleeding hemorrhoid Vaginitis and vulvovaginitis ER Course 28 Yo Female presents to the ED c/o Constipation x 10 days. last BM was 3 days ago. Stool was described as very hard with 10/10 in severity rectal pain upon defecation. pt. reports hx of hemorrhoids. She states her symptoms were exacerbated due to poor diet while incarcerated. pt. denies N/V/F/C. She denies diarrhea, recent travel or ill contacts. She denies . She reports 2 days of vaginal itching on the external labia. She denies sores, vaginal d/c or swollen tender lymph nodes. pt. denies pelvic pain or abdominal pain. Pt. reports some dysuria. She denies low back pain. Pt. reports some scant brbpr on the tissue after wiping after her last BM. Ddx considered but are not limited to constipation , appendicitis, SBO, ectopic , PID, tubo-ovarian abscess, Hemorrhoid, UTI, Vaginitis just to name a few. Vital signs: are WNL, pt. is afebrile H&PE are most consistent with constipation. bowl sounds are normo active. ORDERS: -UA- few bacteria -Urine Hcg: Negative ED INTERVENTIONS: G cocktail, pt. states pain has subsided after administration of GI cocktail. DISCHARGE: At this time pt. is stable for d/c to home. Will provide printed patient care instructions, and any necessary prescriptions. Care plan and follow up instructions have been discussed with the patient prior to discharge. Labs Test 10/30/18 14:30 Urine Color Yellow Urine Appearance Clear Urine pH 6.5 (4.5-8.0) Urine Specific [place] 1.010 (1.005-1.035) Urine Protein Negative (NEGATIVE) Urine Glucose (UA) Negative (NEGATIVE) Urine Ketones Negative (NEGATIVE) Urine Blood Negative (NEGATIVE) Urine Nitrite Negative (NEGATIVE) Urine Bilirubin Negative (NEGATIVE) Urine Urobilinogen Normal MG/DL (0.0-1.0) Urine Leukocyte Esterase 1+ (NEGATIVE) Urine RBC 0 /HPF (0 - 2) Urine WBC 0-2 /HPF (0 - 2) Urine Squamous Epithelial Cells Few /LPF (NONE/OCC) Urine Bacteria Occasional /HPF (NONE) Urine HCG, Qualitative Negative (NEGATIVE) Last Vital Signs Date Time Temp Pulse Resp B/P (MAP) Pulse Ox O2 Delivery O2 Flow Rate FiO2 10/30/18 13:36 98.2 17 120/85 96 Room Air 10/30/18 13:13 96 Status: improved Disposition: HOME, SELF-CARE Condition: Stable Scripts Fluconazole (FLUCONAZOLE) 100 Mg Tablet 100 MG ORAL DAILY, #2 TAB 0 Refills Prov: Amy Webb 10/30/18 Lidocaine/Hydrocortisone AC (Lidocaine-Hc 2-2% Cream Kit) 1 Each Kit 1 EACH RC BID for 3 Days, #6 KIT Prov: Amy Webb 10/30/18 Na Phos,M-B/Na Phos,Di-Ba (ENEMA IVCQX-BG-VSA) 133 Ml Enema 133 ML RC TID for constipation, #4 EA Prov: Amy Webb 10/30/18 Docusate Sodium* (COLACE*) 100 Mg Capsule 100 MG ORAL THREE TIMES A DAY, #60 CAP Prov: Amy Webb 10/30/18 Lactulose (LACTULOSE*) 20 Gm/30 Ml Solution 30 ML ORAL BID for 3 Days, #180 ML 0 Refills Prov: Amy Webb 10/30/18 Nitrofurantoin Monohyd/M-Cryst* (MACROBID 100 MG*) 100 Mg Capsule 100 MG ORAL EVERY 12 HOURS for 5 Days, #10 CAP Prov: Amy Webb 10/30/18 Patient Instructions: Constipation, Adult Additional Instructions: Take medications as directed. Follow up with a Primary Care Provider in 3-5 days, even if your symptoms have resolved. --Please review list of primary care clinics, if you do not already have a primary care provider Return sooner to ED if new symptoms occur, or current symptoms become worse. - Please note that this Emergency Department Report was dictated using [employer] straight[employer] technology software, occasionally this can lead to erroneous entry secondary to interpretation by the dictation equipment. Amy Webb October 30, 2018 14:15
--- NOTE | 2018-10-30 14:20 | NUR ---
ED Nurse Note: pt ambulating through er drinking water but states unable to provide urine ermd informed.
[2018-10-30] MEDS ORDERED: COLACE100 MG ORAL ×3 (14:28→15:10)
[2018-10-30] MEDS ORDERED: LIDOCAINE HC RC ×3 (14:28→15:10)
[2018-10-30] MEDS ORDERED: LACTULOSE20 GM/301 ORAL ×3 (14:28→15:10)
[2018-10-30] MEDS ORDERED: FLUCONAZOLE100 MG ORAL ×3 (14:28→15:10)
[2018-10-30] MEDS ORDERED: ENEMA READY-TO133 ML RC ×3 (14:28→15:10)
[2018-10-30 14:56] LABS: APPEARANCE,URINE CLEAR; BILIRUBIN, URINE NEGATIVE (NEGATIVE); GLUCOSE, URINE (UA) NEGATIVE (NEGATIVE); KETONES,URINE NEGATIVE (NEGATIVE); LEUKOCYTE ESTERASE ,URINE 1+ (NEGATIVE); NITRITE,URINE NEGATIVE (NEGATIVE); PH,URINE 6.5 (4.5-8.0); PROTEIN,URINE NEGATIVE (NEGATIVE); UROBILINOGEN,URINE NORMAL MG/DL (0.0-1.0)
[2018-10-30 14:58] LABS: COLOR,URINE YELLOW
[2018-10-30] MEDS ORDERED: NITROFURANTOIN100 M2 ORAL ×2 (15:09)
[2018-10-30 15:22] VITALS: BP 123/85
--- NOTE | 2018-10-30 16:09 | NUR ---
ED Nurse Note: pt given aci and script verbalized understanding ambulated out of er with strong and steady gait.
== END 2018-10-30 15:22 | disposition home or self-care (01) ==
LOC: EMR 14:03
DX: K59.00 Constipation, unspecified (principal); K64.9 Unspecified hemorrhoids; N76.0 Acute vaginitis; R30.0 Dysuria; Z88.6 Allergy status to analgesic agent
CPT/HCPCS: 81003; 81025; 99283

== ENCOUNTER 2018-11-07 16:43 | Emergency (ER) | payer MEDICAID ==
[~2018-11-07] VITALS: Ht 167.6 cm; Wt 53.5 kg
[~2018-11-07 16:43] MED LIST changes: +COLACE100 MG ORAL; +ENEMA READY-TO133 ML RC; +LACTULOSE20 GM/301 ORAL; +LIDOCAINE HC RC; +NITROFURANTOIN100 M2 ORAL
--- NOTE | 2018-11-07 17:00 | NUR ---
ED Nurse Note: pt came in due to swelling of bilateral feet, pt denies trauma. pt is untidy in appearance. pt denies pain and states it is only itchiness. seen by lexii gutierrez. will continue to monitor
--- NOTE | 2018-11-07 17:27 | Emergency Room Report ---
History of Present Illness General Chief Complaint: Lower Extremity Injury Source: Patient Present Illness HPI 28 YO female presents to the emergency department c/o itchy 9/10 in severity insect bites on bilateral UE's and LE's with swelling in the feet bilaterally. Denies hx of HTN or CHF. Pt. denies fevers, chills or swollen tender lymph nodes. Denies lesions/rashes elsewhere on the body. Denies new medications or body washes or creams. Denies swelling of the lips, tongue , throat or airway. Denies wheezing, or shortness of breath. Denies recent travel , recent illness or ill contacts. denies blisters, oral lesions, or sloughing of the skin Denies Cough, CP, palpitations. Denies hx of HTN. Pt. denies prolonged standing/ walking. Allergies: Coded Allergies: ACETAMINOPHEN (Verified Allergy, Intermediate, Hives, 09/01/12) HYDROCODONE BIT (Verified Allergy, Intermediate, Hives, 09/01/12) Patient History Past Medical History: see triage record, psych hx Past Surgical History: none Pertinent Family History: none Last Menstrual Period: september Now: No Reviewed Nursing Documentation: PMH: Agreed; PSxH: Agreed Nursing Documentation-PMH Past Medical History: No History, Except For Review of Systems All Other Systems: negative except mentioned in HPI Physical Exam Vital Signs Date Time Temp Pulse Resp B/P (MAP) Pulse Ox O2 Delivery O2 Flow Rate FiO2 11/07/18 16:46 98.6 79 20 137/90 (106) 98 Room Air Sp02 EP Interpretation: reviewed, normal General Appearance: no apparent distress, alert, GCS 15, non-toxic Head: normocephalic, atraumatic Eyes: bilateral eye normal inspection, bilateral eye PERRL ENT: hearing grossly normal, normal voice Neck: full range of motion Respiratory: chest non-tender, lungs clear, normal breath sounds, no wheezing, speaking full sentences Cardiovascular #1: regular rate, rhythm, normal capillary refill, edema - very very mild swelling in the bilateral LE's non pitting. Musculoskeletal: back normal, gait/station normal, normal range of motion, non- tender Neurologic: alert, oriented x3, responsive, motor strength/tone normal, sensory intact, normal gait, speech normal, grossly normal Psychiatric: judgement/insight normal, other - flat affect. Skin: normal color, warm/dry, well hydrated, rash - multiple insect bites to bilateral LE's, mild erythema around each bite, no warmth or evidence of infection, no blisters or vessicles. Lymphatic: no adenopathy Medical Decision Making PA Attestation Dr. hall is my supervising Physician whom patient management has been discussed with. Diagnostic Impression: Primary Impression: Rash and other nonspecific skin eruption ER Course 61-year-old male presents to the emergency department for help entering into an assisted living. Is requesting that we obtain physical medical record from [place]. He denies pain at this time he has no medical complaints. He has moved to this area from the . 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 Patient is also requesting a walker.Denies CP, Palpitations, LOC, AMS, dizziness, Changes in Vision, Sensation, paresthesias, or a sudden severe headache. Ddx considered but are not limited to cellulitis, scabies, shingles, varicella, dermatitis, urticaria, eczema, tinea, viral exanthem, SJS Vital signs: are WNL, pt. is afebrile H&PE are most consistent with multiple insect bites and localized allergic reaction . Pt. has benign peripheral edema. ORDERS: none required at this time, the diagnosis is clinical ED INTERVENTIONS: --I do not identify an emergent condition at this time. With current presentation, pt. is stable for close outpatient follow up and conservative treatment. D/w pt. to return promptly to ED with worsening or new symptoms.- Pt. verbalizes' understanding and agreement with proposed treatment plan. DISCHARGE: At this time pt. is stable for d/c to home. Will provide printed patient care instructions, and any necessary prescriptions. Care plan and follow up instructions have been discussed with the patient prior to discharge. Last Vital Signs Date Time Temp Pulse Resp B/P (MAP) Pulse Ox O2 Delivery O2 Flow Rate FiO2 11/07/18 16:46 98.6 79 20 137/90 (106) 98 Room Air Disposition: HOME, SELF-CARE Condition: Stable Scripts Bacitracin/Polymyxin B Sulfate (BACITRACIN-POLYMYXIN OINTMENT) 28.35 Gm Oint...g. 1 APPLIC TP BID, #28.3 GM Prov: Amy Webb 5/27/19 Diphenhydramine Hcl (BENADRYL ALLERGY) 25 Mg Tablet 25 MG PO Q6HR, #30 TAB Prov: Amy Webb 11/07/18 Hydrocortisone 2% Cream (ANTI-ITCH 2% CREAM) Y Cr 1 APPLIC TP QID, #28 GM 2 Refills Prov: Amy Webb 11/07/18 Referrals: NOT CHOSEN IPA/MD,REFERRING (PCP) Patient Instructions: Insect Bite, [id number], Rash Additional Instructions: Take medications as directed. Follow up with a Primary Care Provider in 3-5 days, even if your symptoms have resolved. --Please review list of primary care clinics, if you do not already have a primary care provider Return sooner to ED if new symptoms occur, or current symptoms become worse. - Please note that this Emergency Department Report was dictated using Epocratesshroudman technology software, occasionally this can lead to erroneous entry secondary to interpretation by the dictation equipment. Amy Webb November 07, 2018 17:27
[2018-11-07] MEDS ORDERED: BACITRACIN-P28.35 GM TP (17:30)
[2018-11-07] MEDS ORDERED: BENADRYL ALLERG25 M1 PO (17:30)
[2018-11-07] MEDS ORDERED: ANTI-ITCH28 G1 TP (17:30)
[2018-11-07 17:36] VITALS: BP 137/90
--- NOTE | 2018-11-07 17:36 | NUR ---
ER DISCHARGE NOTE: Patient is cleared to be discharged per ERMD, pt is aox4, on room air, with stable vital signs. pt was given dc and prescription instructions, pt was able to verbalize understanding, pt id band removed without complications. pt is able to ambulate with steady gait. pt took all belongings.
== END 2018-11-07 17:36 | disposition home or self-care (01) ==
LOC: EMR 17:20
DX: R21 Rash and other nonspecific skin eruption (principal); Z88.6 Allergy status to analgesic agent; R60.0 Localized edema; S40.862A Insect bite (nonvenomous) of left upper arm, initial encounter; S40.861A Insect bite (nonvenomous) of right upper arm, initial encounter; S80.862A Insect bite (nonvenomous), left lower leg, initial encounter; S80.861A Insect bite (nonvenomous), right lower leg, initial encounter; W57.XXXA Bitten or stung by nonvenomous insect and other nonvenomous arthropods, initial encounter; Y92.9 Unspecified place or not applicable
CPT/HCPCS: 99282

== ENCOUNTER 2018-12-11 09:45 | Emergency (ER) | payer MEDICAID ==
[~2018-12-11] VITALS: Ht 162.6 cm; Wt 55.8 kg
[~2018-12-11 09:45] MED LIST changes: +ANTI-ITCH28 G1 TP
--- NOTE | 2018-12-11 09:48 | NUR ---
ED Nurse Note: Called patient. Patient not in waiting room.
[2018-12-11 10:10] VITALS: BP 113/71
--- NOTE | 2018-12-11 10:10 | NUR ---
ED Nurse Note: pt walked in to ED due to earring stuck on right ear lobes for 2 weeks. AAO x4. respirations even and non-labored noted. will wait for the further order.
[2018-12-11] MEDS ORDERED: CEPHALEXIN500 MG ORAL (10:19)
[2018-12-11 10:33] VITALS: BP 113/71
--- NOTE | 2018-12-11 10:34 | NUR ---
Homeless Discharge: Patient is being discharged from medical care. Awake, alert and oriented x3. After care instructions, including referral to community resources were given. Patient verbalized understanding of After care instructions. pt wants to go her own pharmacy. prescription provide. Patient signed patient consent in the medical record for patient destination upon discharge. All medical devices such as ID band were removed. Patient ambulated out with all personal belongings with steady gait.
--- NOTE | 2018-12-11 10:35 | Emergency Room Report ---
History of Present Illness General Chief Complaint: Foreign Body Source: Patient, Medical Record Present Illness HPI Patient presents with reports that she was not able to remove her earring from the right side over the past 2-1/2 to 3 weeks denies any discharge denies any fevers Patient has very minimal discomfort but denies any other pain Denies any change in hearing Allergies: Coded Allergies: ACETAMINOPHEN (Verified Allergy, Intermediate, Hives, 09/01/12) HYDROCODONE BIT (Verified Allergy, Intermediate, Hives, 09/01/12) Patient History Past Medical History: see triage record Pertinent Family History: none Last Menstrual Period: 11/14/2018 Reviewed Nursing Documentation: PMH: Agreed; PSxH: Agreed Nursing Documentation-PMH Past Medical History: No History, Except For Review of Systems All Other Systems: negative except mentioned in HPI Physical Exam Vital Signs Date Time Temp Pulse Resp B/P (MAP) Pulse Ox O2 Delivery O2 Flow Rate FiO2 12/11/18 09:52 98.1 96 16 113/71 (85) 97 Room Air Sp02 EP Interpretation: reviewed, normal General Appearance: no apparent distress Head: normocephalic, atraumatic Eyes: bilateral eye PERRL, bilateral eye EOMI ENT: normal pharynx, other - Right ear evaluation reveals earing the outside area visible, posteriorly on the earlobe, palpable aspect of the hearing is felt however no visualization is able to be made as the entire area appears to be retained under the skin no obvious fluctuance no discharge Respiratory: lungs clear Cardiovascular #1: regular rate, rhythm Musculoskeletal: normal inspection Neurologic: alert, oriented x3, responsive Psychiatric: normal inspection Skin: other - As above Lymphatic: no adenopathy Medical Decision Making Diagnostic Impression: Primary Impression: retained foreign body ER Course Evaluation of the right ear does reveal retained foreign body posteriorly This does not have any correlation with the tympanic canal and appears to be external No obvious fluctuance given that the foreign body is fully retained , Patient requires specialty follow-up in consultation for further surgical attempted removal Patient has appropriate medical screening evaluation does not show any other emergent pathology requiring emergent procedure and is stable for close outpatient follow-up Last Vital Signs Date Time Temp Pulse Resp B/P (MAP) Pulse Ox O2 Delivery O2 Flow Rate FiO2 12/11/18 10:10 98.1 96 16 113/71 97 Room Air Status: unchanged Disposition: HOME, SELF-CARE Condition: Stable Scripts Cephalexin* (KEFLEX*) 500 Mg Capsule 500 MG ORAL EVERY 6 HOURS for 7 Days, CAP Prov: Eloy Clifford DO 12/11/18 Referrals: [facility] Michelle Rahman. [facility] Psych ER - Peds ER - Patient Instructions: Ear Foreign Body Additional Instructions: Patient is provided with the discharge instructions notified to follow up with primary doctor in the next 2-3 days otherwise return to the er with any worsening symptoms. Please note that this report is being documented using DRAGON technology. This can lead to erroneous entry secondary to incorrect interpretation by the dictating instrument. Eloy Clifford DO Dec 11, 2018 10:35
== END 2018-12-11 10:39 | disposition home or self-care (01) ==
LOC: EMR 10:39
DX: S00.451A Superficial foreign body of right ear, initial encounter (principal); Z88.6 Allergy status to analgesic agent; X58.XXXA Exposure to other specified factors, initial encounter; Y92.9 Unspecified place or not applicable
CPT/HCPCS: 99282

== ENCOUNTER 2019-03-11 18:06 | Emergency (ER) | payer MEDICAID ==
[~2019-03-11] VITALS: Ht 167.6 cm; Wt 59.0 kg
[~2019-03-11 18:06] MED LIST changes: +CEPHALEXIN500 MG ORAL
[2019-03-11 18:17] VITALS: BP 149/77
--- NOTE | 2019-03-11 18:25 | NUR ---
ED Nurse Note: Patient walked into ED c/o swelling around her eyes for 2 days. patient is alert awake x4 ambulatory steady gait, breathing unlabored and even, speaking in full sentences.
[2019-03-11] MEDS ORDERED: OPCON-A EYE DRO15 ML OP (18:38)
--- NOTE | 2019-03-11 18:38 | Emergency Room Report ---
History of Present Illness General Chief Complaint: Eye Problems Source: Patient Present Illness HPI 28-year-old female patient presents the ER complaining of right eye swelling and itchiness for the past 2 days. Reports eye discharge early in the morning, reports discharge is white. Denies vision problems. Denies wearing contacts. Denies fever vomiting chills. Denies other aggravating relieving factors. Denies foreign body sensation. Denies anything getting in her eye. Allergies: Coded Allergies: ACETAMINOPHEN (Verified Allergy, Intermediate, Hives, 09/01/12) HYDROCODONE BIT (Verified Allergy, Intermediate, Hives, 09/01/12) Patient History Past Medical History: see triage record Last Menstrual Period: 02/2019 Now: No Reviewed Nursing Documentation: PMH: Agreed; PSxH: Agreed Nursing Documentation-PMH Past Medical History: No History, Except For Review of Systems All Other Systems: negative except mentioned in HPI Physical Exam Vital Signs Date Time Temp Pulse Resp B/P (MAP) Pulse Ox O2 Delivery O2 Flow Rate FiO2 03/11/19 18:17 98.4 95 20 149/77 (101) 98 Room Air Sp02 EP Interpretation: reviewed, normal General Appearance: well appearing, no apparent distress, alert, GCS 15, non- toxic Head: normocephalic, atraumatic Eyes: right eye other - Mild periorbital swelling, no erythema, no drainage, no warmth to touch, no bug bite, no open wound; bilateral eye normal inspection , bilateral eye PERRL ENT: hearing grossly normal, normal pharynx, no angioedema, normal voice, uvula midline, moist mucus membranes, other Neck: full range of motion Respiratory: lungs clear, normal breath sounds, no rhonchi, no respiratory distress, no accessory muscle use, no wheezing, speaking full sentences Cardiovascular #1: regular rate, rhythm, no edema Musculoskeletal: back normal, digits/nails normal, gait/station normal, normal range of motion, non-tender Neurologic: alert, oriented x3, responsive, motor strength/tone normal, sensory intact Psychiatric: mood/affect normal Lymphatic: no adenopathy Medical Decision Making PA Attestation Dr. Erickson is my supervising Physician whom patient management has been discussed with. Diagnostic Impression: Primary Impression: Allergic conjunctivitis ER Course Pt. presents to the ED c/o swollen and itchy right eye. Ddx considered but are not limited to allergic conjunctivitis, bacterial conjunctivitis, orbital cellulitis, URI, sinusitis, bug bite. No pain with eye movement, no erythema, no drainage, no fever, low suspicion for periorbital cellulitis. Vital signs: are WNL, pt. is afebrile ER course: Will provide patient with medication at discharge. Mild swelling consistent with likely allergic conjunctivitis. Follow-up with primary care provider. Discussed referral to eye clinic manager. DISCHARGE: Rx provided for anti-itch eye drops. At this time pt. is stable for d/c to home. Patient is resting comfortably, in no acute distress, nontoxic appearing. Will provide printed patient care instructions, and any necessary prescriptions. Patient instructed to follow up with human resources benefits manager and discuss further follow up with garment inspector. Care plan and follow up instructions have been discussed with the patient prior to discharge. Patient questions asked and answered. Patient reports understanding and agreement to treatment plan. ER precautions given. Patient instructed to return to ER immediately for any new or worsening of symptoms. - Please note that this Emergency Department Report was dictated using PerBluesteel erector technology software, occasionally this can lead to erroneous entry secondary to interpretation by the dictation equipment. Last Vital Signs Date Time Temp Pulse Resp B/P (MAP) Pulse Ox O2 Delivery O2 Flow Rate FiO2 03/11/19 18:17 98.4 95 20 149/77 (101) 98 Room Air Status: improved Disposition: HOME, SELF-CARE Condition: Stable Scripts Naphazoline Hcl/Pheniramine (OPCON-A EYE DROPS) 15 Ml Drops 15 ML OP BID, #15 ML Prov: Carlos Maloney 03/11/19 Patient Instructions: Viral Conjunctivitis Additional Instructions: Followup with primary care provider in 3 -5 days. Follow-up with garment inspector denies specialist. Take medications as directed. Patient questions asked and answered. ER precautions given, patient instructed to return to ER immediately for any new or worsening of symptoms. Carlos Maloney Mar 11, 2019 18:38
[2019-03-11] MEDS ORDERED: Naphazoline 0.03% Opth Soln 15ml RIGHT EYE PRN (19:00)
[2019-03-11 19:14] VITALS: BP 149/77
--- NOTE | 2019-03-11 19:14 | NUR ---
ER DISCHARGE NOTE: Patient is being discharged from medical care. Patient is cleared to be discharged per MAREN MEREDITH , pt is aox4, on room air, with stable vital signs. pt was given dc and medication instructions, pt was able to verbalize understanding, patient given the medication from pharmacy per hospital policy. pt id band removed without complications. pt is able to ambulate with steady gait. pt took all belongings. After care instructions, including referral to community resources were given. Patient verbalized understanding of After care instructions; at this time patient does not request equipment or placement. Patient signed patient consent in the medical record for patient destination upon discharge. Patient ambulated out with all personal belongings with steady gait.
== END 2019-03-11 19:14 | disposition home or self-care (01) ==
LOC: EMR 18:52
DX: H10.11 Acute atopic conjunctivitis, right eye (principal); Z88.6 Allergy status to analgesic agent
CPT/HCPCS: 99282; C9399

== ENCOUNTER 2019-05-13 23:44 | Emergency (ER) | payer MEDICAID ==
[~2019-05-13] VITALS: Ht 167.6 cm; Wt 52.2 kg
[~2019-05-13 23:44] MED LIST changes: +OPCON-A EYE DRO15 ML OP
--- NOTE | 2019-05-13 23:47 | NUR ---
ED Nurse Note: Patient [place] up from the streets stating "my heart and my lung hurts" states that this has been an ongoing issue for the past couple of weeks. Pt nad, vss, resting comfortably in bed. ERMD at bedside for assessment.
[2019-05-14] VITALS (8 sets, daily range): BP systolic 109–116; BP diastolic 63–74
--- NOTE | 2019-05-14 00:15 | NUR ---
ED Nurse Note: While placing IV line pt noted in bed talking to self, answering also, pt is having auditory hallucinations and very rude to staff, informed, all labs drawn and sent.
[2019-05-14 00:34] LABS: BASOPHILS % (AUTO) 0.6 % (0.0-2.0); EOSINOPHILS % (AUTO) 0.2 % (0.0-3.0); HEMATOCRIT 41.9 % (37.0-47.0); HEMOGLOBIN 14.6 G/DL (12.0-16.0); LYMPHOCYTES % (AUTO) 15.9 % (20.0-45.0); MEAN CORPUSCULAR VOLUME 89 FL (80-99); MONOCYTES % (AUTO) 5.4 % (1.0-10.0); PLATELET COUNT 238 K/UL (150-450); RED CELL DISTRIBUTION WIDTH 11.5 % (11.6-14.8); WHITE BLOOD COUNT 10.4 K/UL (4.8-10.8)
--- NOTE | 2019-05-14 00:44 | Diagnostic Imaging Report ---
EXAM: XR Chest, 1 View CLINICAL HISTORY: CP TECHNIQUE: Frontal view of the chest. COMPARISON: No relevant prior studies available. FINDINGS: Lungs: Unremarkable. No consolidation. Pleural space: Unremarkable. No pneumothorax. Heart: Unremarkable. No cardiomegaly. Mediastinum: Unremarkable. Bones/joints: Unremarkable. IMPRESSION: No acute cardiopulmonary abnormality.
[2019-05-14 00:48] LABS: ANION GAP 11 mmol/L (5-15); BLOOD UREA NITROGEN 14 mg/dL (7-18); CALCIUM 9.3 MG/DL (8.5-10.1); CARBON DIOXIDE 24 MMOL/L (21-32); CHLORIDE 102 MMOL/L (98-107); CREATININE 0.8 MG/DL (0.55-1.30); POTASSIUM 5.7 MMOL/L (3.5-5.1); SODIUM 137 MMOL/L (136-145)
[2019-05-14 00:58] LABS: ALANINE AMINOTRANSFERASE 17 U/L (12-78); ALBUMIN 4.3 G/DL (3.4-5.0); ALBUMIN/GLOBULIN RATIO 1.1 (1.0-2.7); ALKALINE PHOSPHATASE 58 U/L (46-116); ASPARTATE AMINO TRANSFERASE 34 U/L (15-37); BILIRUBIN,TOTAL 1.2 MG/DL (0.2-1.0)
[2019-05-14 01:13] LABS: BILIRUBIN,DIRECT 0.1 MG/DL (0.0-0.3)
--- NOTE | 2019-05-14 02:50 | Emergency Room Report ---
History of Present Illness General Chief Complaint: General Complaint Source: Patient (Alexys Sheehan M.D.) Present Illness HPI 28-year-old female who reports that she has chest pain and difficulty breathing. Patient states that she had a history of a blood clot. Patient of note is homeless and has no documentation noting this at this hospital. Patient states that she used to take blood thinners but has not taken any medications for the last several months because she" finished the dose". I tried to clarify with the patient if it was deep vein thrombosis or pulmonary embolus. Patient states her blood clot was in her lungs. Patient denies any fevers cough congestion nausea or vomiting. She states that her chest pain is moderate intensity, described as tightness and its worsened with deep breath (Alexys Sheehan M.D.) Allergies: Coded Allergies: ACETAMINOPHEN (Verified Allergy, Intermediate, Hives, 09/01/12) HYDROCODONE BIT (Verified Allergy, Intermediate, Hives, 09/01/12) HYDROCODONE (Unverified Allergy, Unknown, 05/13/19) Nursing Documentation-[facility] Past Medical History: No History, Except For (Alexys Sheehan M.D.) Review of Systems Constitutional: Denies: chills, fever Respiratory: Reports: shortness of breath; Denies: cough Cardiovascular: Reports: chest pain; Denies: palpitations Gastrointestinal: Denies: diarrhea, vomiting Genitourinary: Denies: hematuria, pain Musculoskeletal: Denies: joint swelling Skin: Denies: rash, lesions Neurological: Denies: headache, dizziness (Alexys Sheehan M.D.) Physical Exam Vital Signs Date Time Temp Pulse Resp B/P (MAP) Pulse Ox O2 Delivery O2 Flow Rate FiO2 05/13/19 23:39 98.2 67 18 118/79 (92) 98 Room Air Sp02 EP Interpretation: reviewed General Appearance: well appearing, no apparent distress, non-toxic Head: normocephalic, atraumatic Eyes: bilateral eye normal inspection ENT: hearing grossly normal, EOM grossly intact, moist mucus membranes Neck: supple Respiratory: lungs clear, normal breath sounds, no respiratory distress, speaking full sentences Cardiovascular #1: regular rate, rhythm, normal capillary refill Cardiovascular #2: 2+ radial (R), 2+ radial (L) Gastrointestinal: soft, non-distended Rectal: deferred Musculoskeletal: moves extm spontaneously, no lower extremity edema Neurologic: grossly normal Psychiatric: mood/affect normal Skin: warm/dry, normal turgor (Alexys Sheehan M.D.) Medical Decision Making Diagnostic Impression: Primary Impression: Atypical chest pain ER Course 28-year-old homeless female who states she has a history of PE was presenting with chest pain and difficulty breathing. Differential includes but not excluded to ACS, PE, URI, malingering, Patient to have x-rays, lab testing, influenza testing and will reassess. (Alexys Sheehan M.D.) ER Course 28-year-old female presents with atypical chest pain, pleuritic chest pain worse with inspiration, differential diagnosis includes ACS, PE, pneumonia Patient with a positive d-dimer, CTA shows no acute processes, Patient with atypical chest pain disposition home with return precautions, patient also with a possible component of malingering given the fact that she wants a place to stay and is asking for food Laboratory Tests Test 05/14/19 00:20 White Blood Count 10.4 K/UL (4.8-10.8) Red Blood Count 4.70 M/UL (4.20-5.40) Hemoglobin 14.6 G/DL (12.0-16.0) Hematocrit 41.9 % (37.0-47.0) Mean Corpuscular Volume 89 FL (80-99) Mean Corpuscular Hemoglobin 31.0 PG (27.0-31.0) Mean Corpuscular Hemoglobin Concent 34.8 G/DL (32.0-36.0) Red Cell Distribution Width 11.5 % (11.6-14.8) L Platelet Count 238 K/UL (150-450) Mean Platelet Volume 7.2 FL (6.5-10.1) Neutrophils (%) (Auto) 78.0 % (45.0-75.0) H Lymphocytes (%) (Auto) 15.9 % (20.0-45.0) L Monocytes (%) (Auto) 5.4 % (1.0-10.0) Eosinophils (%) (Auto) 0.2 % (0.0-3.0) Basophils (%) (Auto) 0.6 % (0.0-2.0) D-Dimer 0.97 mg/L FEU (0.00-0.49) H Urine HCG, Qualitative Pending Sodium Level 137 MMOL/L (136-145) Potassium Level 5.7 MMOL/L (3.5-5.1) H Chloride Level 102 MMOL/L (98-107) Carbon Dioxide Level 24 MMOL/L (21-32) Anion Gap 11 mmol/L (5-15) Blood Urea Nitrogen 14 mg/dL (7-18) Creatinine 0.8 MG/DL (0.55-1.30) Estimate Glomerular Filtration Rate > 60 mL/min (>60) Glucose Level 87 MG/DL (74-106) Calcium Level 9.3 MG/DL (8.5-10.1) Total Bilirubin 1.2 MG/DL (0.2-1.0) H Direct Bilirubin 0.1 MG/DL (0.0-0.3) Aspartate Amino Transferase (AST) 34 U/L (15-37) Alanine Aminotransferase (ALT) 17 U/L (12-78) Alkaline Phosphatase 58 U/L (46-116) Troponin I 0.003 ng/mL (0.000-0.056) Total Protein 8.3 G/DL (6.4-8.2) H Albumin 4.3 G/DL (3.4-5.0) Globulin 4.0 g/dL Albumin/Globulin Ratio 1.1 (1.0-2.7) Salicylates Level 0.2 ug/mL (2.8-20) L Urine Opiates Screen Negative (NEGATIVE) Acetaminophen Level < 2 MCG/ML (10-30) L Urine Barbiturates Screen Negative (NEGATIVE) Phencyclidine (PCP) Screen Negative (NEGATIVE) Urine Amphetamines Screen Negative (NEGATIVE) Urine Benzodiazepines Screen Negative (NEGATIVE) Urine Cocaine Screen Negative (NEGATIVE) Urine Marijuana (THC) Screen Positive (NEGATIVE) H Serum Alcohol < 3 mg/dL (Rony Eddy MD) EKG Diagnostic Results EKG Time: 00:29 EP Interpretation: NSR, rate 74, TC 483, no acute ST elevations, normal axis (Rony Eddy MD) Chest X-Ray Diagnostic Results Chest X-Ray Diagnostic Results : Chest X-Ray Ordered: Yes # of Views/Limited/Complete: 1 View Indication: Chest Pain EP Interpretation: Yes Interpretation: no consolidation, no effusion, no pneumothorax, no acute cardiopulmonary disease Impression: No acute disease Electronically Signed by: Rony Eddy MD (Rony Eddy MD) CT/MRI/US Diagnostic Results CT/MRI/US Diagnostic Results : Impression Final Report EXAM: CT Angiography Chest With Intravenous Contrast CLINICAL HISTORY: SOB TECHNIQUE: Axial computed tomographic angiography images of the chest with intravenous contrast. CTDI is 28 mGy and DLP is 356 mGy-cm. One or more of the following dose reduction techniques were used: automated exposure control, adjustment of the mA and/or kV according to patient size, use of iterative reconstruction technique. MIP reconstructed images were created and reviewed. COMPARISON: No relevant prior studies available. FINDINGS: Pulmonary arteries: Unremarkable. No pulmonary embolism. Aorta: No acute findings. No thoracic aortic aneurysm. Lungs: Unremarkable. No mass. No consolidation. Pleural space: Unremarkable. No significant effusion. No pneumothorax. Heart: Unremarkable. No cardiomegaly. No significant pericardial effusion. No evidence of RV dysfunction. Bones/joints: No acute fracture. No dislocation. Soft tissues: Unremarkable. Lymph nodes: Unremarkable. No enlarged lymph nodes. IMPRESSION: Normal chest CTA. No pulmonary embolism. Radiologist: Uma Jaime MD Electronically Signed: 05/14/19 08:08 Study ready at 07:52 and initial results transmitted at 08:08 (Rony Eddy MD) Last Vital Signs Date Time Temp Pulse Resp B/P (MAP) Pulse Ox O2 Delivery O2 Flow Rate FiO2 05/14/19 01:25 97.9 76 16 111/72 98 Room Air (Alexys Sheehan M.D.) Disposition: HOME, SELF-CARE Condition: Stable Referrals: NON PHYSICIAN (PCP) [facility] Michelle Pinto [facility] Patient Instructions: Nonspecific Chest Pain, [id number] Additional Instructions: The patient was provided with discharge instructions, notified to follow-up with a primary care doctor and or specialist in the next 24-48 hours, and to return to the ED if they have worsening of their symptoms. Please note that this report is being documented using Zebra MobileON technology. This can lead to erroneous entry secondary to incorrect interpretation by the dictating instrument. Alexys Sheehan M.D. May 14, 2019 02:50 Rony Eddy MD May 14, 2019 08:12
[2019-05-14] MEDS ORDERED: Omnipaue 350mg/ml 100ml vial INJ PRN (03:00)
--- NOTE | 2019-05-14 03:00 | NUR ---
ED Nurse Note: Pt in bed sleeping, arouses easily to verbal stimuli, denies pain at this time, IV fluids infusing as ordered, v/s stable, no sob or labored breathing, will continue to closely monitor, tp waiting for imaging to be done.
--- NOTE | 2019-05-14 04:30 | NUR ---
ED Nurse Note: Pt in bed sleeping, arouses easily to verbal stimuli, denies pain at this time, v/s stable, no sob or labored breathing, will continue to closely monitor, waiting for imaging to be done.
--- NOTE | 2019-05-14 05:30 | NUR ---
ED Nurse Note: Pt in bed sleeping, arouses easily to verbal stimuli, denies pain at this time, v/s stable, no sob or labored breathing, will continue to closely monitor, continuing to wait for imaging to be done.
--- NOTE | 2019-05-14 07:20 | NUR ---
ED Nurse Note: patient takent to CT
--- NOTE | 2019-05-14 07:21 | NUR ---
HAND-OFF: Report given to JAZIEL Tran.
--- NOTE | 2019-05-14 07:40 | NUR ---
ED Nurse Note: Patient came back from CT. patient placed on a clinical resource nurse. vital signs stable.
--- NOTE | 2019-05-14 08:09 | Diagnostic Imaging Report ---
EXAM: CT Angiography Chest With Intravenous Contrast CLINICAL HISTORY: SOB TECHNIQUE: Axial computed tomographic angiography images of the chest with intravenous contrast. CTDI is 28 mGy and DLP is 356 mGy-cm. One or more of the following dose reduction techniques were used: automated exposure control, adjustment of the mA and/or kV according to patient size, use of iterative reconstruction technique. MIP reconstructed images were created and reviewed. COMPARISON: No relevant prior studies available. FINDINGS: Pulmonary arteries: Unremarkable. No pulmonary embolism. Aorta: No acute findings. No thoracic aortic aneurysm. Lungs: Unremarkable. No mass. No consolidation. Pleural space: Unremarkable. No significant effusion. No pneumothorax. Heart: Unremarkable. No cardiomegaly. No significant pericardial effusion. No evidence of RV dysfunction. Bones/joints: No acute fracture. No dislocation. Soft tissues: Unremarkable. Lymph nodes: Unremarkable. No enlarged lymph nodes. IMPRESSION: Normal chest CTA. No pulmonary embolism.
--- NOTE | 2019-05-14 08:21 | NUR ---
ED Nurse Note: Pt cleared by health care Provider for discharge. DC instructions/prescription was given and explained to pt and verbalized understanding of teachings. All medical devices such as ID band removed. Pt is AAO x4, ambulatory and left with all personal belongings. Patient refused vital signs.
--- NOTE | 2019-05-14 08:21 | NUR ---
Note hope in EDM - 05/16/19 at 1432 by ARNULFO ED Nurse Note: Pt cleared by health care Provider for discharge. DC instructions/prescription was given and explained to pt and verbalized understanding of teachings. All medical deviecs such as ID band removed. Pt is AAO x4, ambulatory and left with all personal belongings. Patient refused vital signs and Homeless Patient Discharge planning.
--- NOTE | 2019-05-14 08:22 | NUR ---
ED Nurse Note: Patient declines to state where she will go after discharge. Transportation was offered and was declined. Patient was offered meal but declined. Patient's clothing is adequate for the weather.
--- NOTE | 2019-05-15 19:21 | Cardiology Report ---
APPROVED REPORT EKG Measurement Heart [id number] Normal sinus rhythm Right atrial enlargement Prolonged QT Abnormal ECG
== END 2019-05-14 08:21 | disposition home or self-care (01) ==
LOC: EDBD 23:44 → EMR 23:55
DX: R07.89 Other chest pain (principal); Z59.0 Homelessness; Z88.6 Allergy status to analgesic agent
CPT/HCPCS: 36415; 71045; 71275; 80053; 80307; 81025; 82248; 84484; 85025; 85379; 93005; 96360; 96361; G0480; G0481; Q9967; Z7502; 99284

== ENCOUNTER 2020-03-14 23:19 | Emergency (ER) | payer MEDICAID ==
[~2020-03-14] VITALS: Ht 172.7 cm; Wt 64.9 kg
[2020-03-14 23:29] VITALS: BP 114/72
[2020-03-15 00:34] LABS: APPEARANCE,URINE CLEAR; BILIRUBIN, URINE NEGATIVE (NEGATIVE); GLUCOSE, URINE (UA) NEGATIVE (NEGATIVE); KETONES,URINE 1+ (NEGATIVE); LEUKOCYTE ESTERASE ,URINE 1+ (NEGATIVE); NITRITE,URINE NEGATIVE (NEGATIVE); PH,URINE 5 (4.5-8.0); PROTEIN,URINE NEGATIVE (NEGATIVE); UROBILINOGEN,URINE NORMAL MG/DL (0.0-1.0)
[2020-03-15 00:37] LABS: COLOR,URINE YELLOW
[2020-03-15 01:00] VITALS: BP 110/73
[2020-03-15] MEDS ORDERED: PHENAZOPYRIDIN100 MG ORAL (01:06)
[2020-03-15] MEDS ORDERED: NITROFURANTOIN100 M2 ORAL (01:06)
[2020-03-15 01:15] VITALS: BP 119/76
--- NOTE | 2020-03-15 04:06 | Emergency Room Report ---
History of Present Illness General Chief Complaint: Female Urogenital Problems Source: Patient Present Illness HPI 29-year-old -[place] female presents with dysuria. Denies fevers, abdominal pain, chills, hematuria, vaginal pain, melena, hematochezia, diarrhea, chest pain, shortness of breath or other complaints. She denies concern for sexually transmitted infection at this time. The patient's symptoms were gradual onset, severity was moderate, duration since several days. She is also requesting "2 sandwiches" " sandwiches with peanut butter and jelly" and " socks" Quality: Burning Past medical history: Psychiatric Past surgical history: Denies Smoking: ++ Alcohol use: Denies Drug use: Denies Review of systems: CONST: No fevers or chills, No night sweats PULMONARY: No productive cough, No shortness of breath CARDIAC: No chest pain, No palpitations GI: No vomiting, No diarrhea , No melena_or_BRBPR : ++ dysuria, No hematuria, No discharge NEURO: No new_focal_weakness_or_numbness, No confusion, No vision changes 14 point Review of Systems is otherwise negative except per HPI Physical Exam: GENERAL: Awake_alert_ nontoxic, no acute distress Spo2 98% on RA -normal EYES: Extraocular muscles are intact. Conjunctivae clear. Lids without swelling ENT: External nose and ear normal_in_appearance. Oropharynx clear. Head_atraumatic, Moist_oral_mucosa NECK: No JVD. No meningismus. No thyromegaly. Supple. Trachea midline RESP: Normal respiratory effort. Symmetric rise. No stridor. Clear_to_auscultation_No_rales_No_wheezes CARDIAC: Regular rate and regular rhytm. No_significant pedal edema. ABDOMEN: Soft. Nondistended. Nontender_No_rebound_or_guarding. No CVA tenderness to palpation MSK: Normal muscle tone, without rigidity. Extremities without asymmetric deformity or swelling. SKIN: Warm and dry. No visible cyanosis or pallor NEUROLOGIC: Alert, oriented x3. Motor_and_sensation_grossly_intact. No truncal ataxia. Gait_normal Psych: Normal mood and affect, normal judgment and insight - COORDINATION OF CARE Case was discussed with: Patient Any labs and imaging that were ordered were interpreted as part of the medical decision making: Medical Decision Making/Plan: DDX: Cystitis versus nephrolithiasis versus vaginitis versus STI Urinalysis is not convincing for pyelonephritis or upper infection. Doubt pyelonephritis. Patient is afebrile with no significant CVA or flank tenderness to palpation. Abdominal exam is nontender and non-peritoneal. Empiric treatment was offered for gonorrhea and chlamydia however patient declines. She was fed sandwiches as requested. All needs met. Patient declined social work Will DC with Pyridium and Macrobid. Safe sex practices were discussed. Pertinent results reviewed with the patient. I educated the patient on the current treatment plan including the risks, benefits, and alternatives. I also discussed the extent and limitations of the current evaluation. The patient expressed understanding and agreement with plan. I recommended PMD follow-up within 1-2 days. Also advised that the patient return to the Emergency Department as soon as possible if they experience any new, persistent, or worsening symptoms. Allergies: Coded Allergies: ACETAMINOPHEN (Verified Allergy, Intermediate, Hives, 09/01/12) HYDROCODONE BIT (Verified Allergy, Intermediate, Hives, 09/01/12) HYDROCODONE (Unverified Allergy, Unknown, 05/13/19) COVID-19 Screening Contact w/high risk pt: No Experienced COVID-19 symptoms?: No COVID-19 Testing performed SUPERVISOR TYPE PHOTOGRAPHY: No Patient History Now: No Nursing Documentation-[facility] Past Medical History: No History, Except For History Of Psychiatric Problem: Yes Physical Exam Vital Signs Date Time Temp Pulse Resp B/P (MAP) Pulse Ox O2 Delivery O2 Flow Rate FiO2 03/14/20 23:19 97.7 78 22 114/72 (86) 97 Room Air Sp02 EP Interpretation: reviewed, normal Medical Decision Making Diagnostic Impression: Primary Impression: UTI (urinary tract infection) Additional Impression: Dysuria Last Vital Signs Date Time Temp Pulse Resp B/P (MAP) Pulse Ox O2 Delivery O2 Flow Rate FiO2 03/15/20 01:15 97.7 69 16 119/76 98 Room Air Disposition: HOME, SELF-CARE Admit Decision Time: 00:00 Condition: Stable Scripts Phenazopyridine Hcl* (PYRIDIUM*) 100 Mg Tablet 100 MG ORAL THREE TIMES A DAY for 2 Days, #6 TAB Prov: Elizabeth Lane D.O. 03/15/20 Nitrofurantoin Monohyd/M-Cryst* (MACROBID 100 MG*) 100 Mg Capsule 100 MG ORAL EVERY 12 HOURS for 5 Days, #10 CAP Prov: Elizabeth Lane D.O. 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 Practice safe sex as we discussed. Follow-up with your doctor sooner if your condition requires a more timely clinical reevaluation. Return to the emergency department immediately if you feel that your condition is worsening or if you have any new or concerning symptoms. Review your discharge instructions and take any prescriptions given as instructed. [facility] PROVIDES FREE OR LOW-COST HEALTH SERVICES TO PEOPLE WHO CAN SHOW PROOF THAT THEY LIVE IN [facility]. TO FIND MORE CLINICS PARTNERED WITH [facility] TO PROVIDE SERVICE, PLEASE CALL . Elizabeth Lane D.O. Mar 15, 2020 04:06
== END 2020-03-15 01:15 | disposition home or self-care (01) ==
LOC: EMR 03-15 00:07
DX: N39.0 Urinary tract infection, site not specified (principal); R30.0 Dysuria; Z88.6 Allergy status to analgesic agent
CPT/HCPCS: 81003; 81025; Z7502; 99283

== ENCOUNTER 2020-08-12 23:26 | Emergency (ER) | payer MEDICAID ==
[~2020-08-12] VITALS: Ht 175.3 cm; Wt 81.6 kg
[~2020-08-12 23:26] MED LIST changes: +PHENAZOPYRIDIN100 MG ORAL
--- NOTE | 2020-08-12 23:40 | NUR ---
pt medicated per mar
[2020-08-12] MEDS ORDERED: METRONIDAZOLE500 MG ORAL (23:49)
[2020-08-12] MEDS ORDERED: MACROBID100 MG ORAL (23:49)
--- NOTE | 2020-08-12 23:50 | Emergency Room Report ---
History of Present Illness General Chief Complaint: Vaginal Source: Patient, Medical Record Present Illness HPI This is a 30-year-old female who is homeless. She presents with chief complaint of a bladder infection. She said this frequently. Denies any discharge. Also said that she has bacterial vaginosis. Denies any fever chills. Poor historian. She says she does not talk about her right now. After some time, she did tell me that is been ongoing for last 2 days. Has burning sensation when she urinates. Has frequency. Denies discharge or bleeding. Allergies: Coded Allergies: ACETAMINOPHEN (Verified Allergy, Intermediate, Hives, 09/01/12) HYDROCODONE BIT (Verified Allergy, Intermediate, Hives, 09/01/12) HYDROCODONE (Unverified Allergy, Unknown, 05/13/19) COVID-19 Screening Contact w/high risk pt: No Experienced COVID-19 symptoms?: No COVID-19 Testing performed HOME ORGANIZER: No Patient History Past Medical History: see triage record, old chart reviewed Past Surgical History: none Pertinent Family History: none Social History: Denies: smoking Now: No Immunizations: other Reviewed Nursing Documentation: PMH: Agreed; PSxH: Agreed Review of Systems Eye: Denies: eye pain, blurred vision ENT: Denies: ear pain, nose congestion, throat swelling Respiratory: Denies: cough, shortness of breath Cardiovascular: Denies: chest pain, palpitations Gastrointestinal: Denies: abdominal pain, diarrhea, nausea, vomiting Genitourinary: Reports: dysuria, frequency Musculoskeletal: Denies: back pain, joint pain Skin: Denies: rash Neurological: Denies: headache, numbness Endocrine: Denies: increased thirst, increased urine Hematologic/Lymphatic: Denies: easy bruising All Other Systems: negative except mentioned in HPI Physical Exam Vital Signs Date Time Temp Pulse Resp B/P (MAP) Pulse Ox O2 Delivery O2 Flow Rate FiO2 08/12/20 23:32 98.4 90 20 108/85 (93) 98 Room Air Vitals normal Sp02 EP Interpretation: reviewed, normal General Appearance: well appearing, no apparent distress, alert Head: normocephalic, atraumatic Eyes: bilateral eye PERRL, bilateral eye EOMI ENT: hearing grossly normal, normal pharynx Neck: full range of motion, supple, no meningismus Respiratory: chest non-tender, lungs clear, normal breath sounds Cardiovascular #1: regular rate, rhythm, no murmur Gastrointestinal: normal bowel sounds, non tender, no mass, no organomegaly, no bruit, non-distended Musculoskeletal: back normal, normal range of motion, gait/station normal Psychiatric: mood/affect normal Medical Decision Making Homeless Attestation I, The treating physician, Dr Esteban Valdez, has assessed and agrees that patient is medically stable for discharge to an outpatient disposition. Diagnostic Impression: Primary Impression: UTI (urinary tract infection) Qualified Codes: N30.00 - Acute cystitis without hematuria ER Course Patient with symptom consistent with UTI. She has clue cells on previous urine culture. Will cover for bacterial vaginosis also. She refused to give a urine sample. Last Vital Signs Date Time Temp Pulse Resp B/P (MAP) Pulse Ox O2 Delivery O2 Flow Rate FiO2 08/12/20 23:32 98.4 90 20 108/85 (93) 98 Room Air Status: improved Disposition: HOME, SELF-CARE Condition: Stable Scripts Nitrofurantoin Monohyd/M-Cryst (Nitrofurantoin Moniteau-Mcr 100 mg) 100 Mg Capsule 100 MG ORAL Q12H, #14 CAP Prov: Esteban Valdez MD 08/12/20 Metronidazole* (FLAGYL*) 500 Mg Tablet 500 MG ORAL BID, #14 TAB Prov: Esteban Valdez MD 08/12/20 Additional Instructions: Follow-up with your doctor in 7 days. Return if symptoms worsen. Esteban Valdez MD Aug 12, 2020 23:50
[2020-08-12 23:56] VITALS: BP 108/85
--- NOTE | 2020-08-12 23:56 | NUR ---
pt given and understands discharge instructions. pt ambulatory out w steady gait
[2020-08-13] MEDS ORDERED: metroNIDAZOLE 500mg tab ORAL ONE
== END 2020-08-13 00:36 | disposition home or self-care (01) ==
LOC: EMR 23:57
DX: N39.0 Urinary tract infection, site not specified (principal); Z88.6 Allergy status to analgesic agent; Z59.0 Homelessness
CPT/HCPCS: 99282